=== PATIENT | female | born 1935 | race Caucasian/White ===

== ENCOUNTER 2017-11-27 08:01 | Inpatient (IN) | payer MEDICARE ==
[~2017-11-27 08:01] MED LIST: ALBUTEROL NEBULIZED 2.5 MG/3 ML INHALATION SCH
[2017-11-27] MEDS ORDERED: SODIUM CHLORIDE 0.9% 1,000 ML IV ONE (08:10)
[2017-11-27 08:42] LABS: Basophils % (A) 0 %; Eosinophils # (A) 0.2 k/uL (0-0.7); Eosinophils % (A) 3 %; HCT 38.8 % (34.0-46.0); HGB 12.7 gm/dL (11.4-16.0); Lymphocytes % (A) 19 %; MCHC 32.8 g/dL (31.0-37.0); MCV 85.5 fL (80.0-100.0); Mean Platelet Volume 7.3; Monocytes # (A) 0.2 k/uL (0-1.0); Monocytes % (A) 4 %; Neutrophils # (A) 3.8 k/uL (1.3-7.7); Neutrophils % (A) 72 %; Platelet Count 231 k/uL (150-450); RBC 4.54 m/uL (3.80-5.40); RDW 15.6 % (11.5-15.5); WBC 5.3 k/uL (3.8-10.6)
--- NOTE | 2017-11-27 08:49 | XR ---
EXAMINATION TYPE: XR chest 2V DATE OF EXAM: 11/27/2017 COMPARISON: NONE TECHNIQUE: PA and lateral views submitted. HISTORY: Shortness of breath FINDINGS: Hypertrophic and degenerative change of the spine. Left-sided consolidation. Right perihilar consolid ation. No pneumothorax. Arthropathy of the shoulders. IMPRESSION: 1. Left lower lobe consolidation correlate for pneumonia. Right perihilar consolidation noted which c ould been the basis of infiltrate, edema or mass. Correlate for interstitial pneumonitis or mild veno us congestion.
[2017-11-27 08:50] LABS: INR 1.1 (<1.2); Prothrombin Time 10.5 sec (9.0-12.0)
--- NOTE | 2017-11-27 08:54 | CT ---
EXAMINATION TYPE: CT brain wo con DATE OF EXAM: 11/27/2017 COMPARISON: NONE HISTORY: Altered mental status CT DLP: 1245 mGycm Automated exposure control for dose reduction was used. FINDINGS: Vascular calcifications are seen. Atherosclerotic change of the aorta. Hyperostosis of the calvarium. There is faint periventricular low attenuation which is nonspecific. No acute hemorrhage or mass effect. Nodular prominence of the right MCA. IMPRESSION: 1. No evidence of acute hemorrhage or mass effect 2. Faint nonspecific periventricular low attenuation most likely in the basis of remote microvascular ischemia. If there is concern for acute ischemia correlate with MRI as clinically warranted. 3. There is nodular prominence of the right MCA bifurcation suspicious for a small aneurysm.
[2017-11-27 09:01] LABS: ALT 21 U/L (9-52); AST 22 U/L (14-36); Albumin 3.8 g/dL (3.5-5.0); Alkaline Phosphatase 53 U/L (38-126); Anion Gap 13 mmol/L; Blood Urea Nitrogen 15 mg/dL (7-17); Calcium 8.8 mg/dL (8.4-10.2); Carbon Dioxide 26 mmol/L (22-30); Chloride 103 mmol/L (98-107); Glucose 113 mg/dL (74-99); Potassium 3.6 mmol/L (3.5-5.1); Sodium 142 mmol/L (137-145); Total Bilirubin 0.5 mg/dL (0.2-1.3); Total Protein 6.1 g/dL (6.3-8.2)
[2017-11-27 09:11] LABS: Appearance,Urine Clear (Clear); Bilirubin,Urine Negative (Negative); Blood,Urine Negative (Negative); Color,Urine Yellow; Glucose,Urine (UA) Negative (Negative); Ketones,Urine Negative (Negative); Leukocyte Esterase,Urine Negative (Negative); Mucus,Urine Rare /hpf; Nitrite,Urine Negative (Negative); Protein,Urine 1+ (Negative); RBC,Urine <1 /hpf (0-5); Specific Gravity,Urine 1.016 (1.001-1.035); Urobilinogen,Urine <2.0 mg/dL (<2.0); WBC,Urine 1 /hpf (0-5)
[2017-11-27 09:16] LABS: Creatine Kinase MB 0.4 ng/mL (0.0-2.4); Troponin I 0.015 ng/mL (0.000-0.034)
[2017-11-27 09:23] LABS: Amphetamine Screen,Urine Not Detected (NotDetected); Barbiturate Screen,Urine Not Detected (NotDetected); Benzodiazepines Screen,Urine Not Detected (NotDetected); Cocaine Screen,Urine Not Detected (NotDetected); Methadone Screen, Urine Not Detected (NotDetected); Opiate Screen,Urine Detected (NotDetected); Oxycodone Screen, Urine Not Detected (NotDetected); Phencyclidine Screen,Urine Not Detected (NotDetected); Tricyclic Antidepressant,Urine Not Detected (NotDetected); Urn Cannabinoid Scrn Not Detected (NotDetected)
[2017-11-27] MEDS ORDERED: HYDROcodone/APAP 10-325MG 1 EACH TAB PO ONE (11:24)
[2017-11-27] MEDS ORDERED: cefTRIAXone 2,000 MG in SODIUM CHLORIDE 0.9% 100 ML IVPB STA (12:22)
[2017-11-27] MEDS ORDERED: AZITHROMYCIN 500 MG TAB PO STA (12:23)
[2017-11-27] MEDS ORDERED: cefTRIAXone IN SWFI 2,000 MG/20 ML SYRINGE IVP STA (12:24)
[2017-11-27] MEDS ORDERED: ACETAMINOPHEN TAB 325 MG TAB PO PRN (12:32)
[2017-11-27] MEDS ORDERED: ONDANSETRON 4 MG/2 ML VIAL IVP PRN (12:32)
[2017-11-27] MEDS ORDERED: NALOXONE 0.4 MG/ML 1 ML VIAL IV PRN (12:32)
--- NOTE | 2017-11-27 12:32 | ED ---
Altered Mental Status HPI - General Chief Complaint: Altered Mental Status Stated Complaint: Altered Mental Time Seen by Provider: 11/27/17 08:09 Source: patient, EMS Mode of arrival: EMS Limitations: altered mental status - History of Present Illness Initial Comments: 82 years old female was unresponsive this morning, daughter is her caregiver they live in the same house daughter was talking on the mom before she was leaving for the work she noticed that mom wouldn't get up and finally she got up and she was quite confused whether she was combative by the time EMS was called and EMS arrived here she was with that by the time she got to the department of emergency medicine she was following the commands she was pleasant there were no complaints at that point he doesn't oxygen at home 24 hours today she does have a COPD she refused any headaches no neck stiffness no chest pain or shortness of breath no abdominal pain no frequency urgency dysuria - Related Data Home Medications Medication Instructions Recorded Confirmed Albuterol Nebulized [Ventolin 2.5 mg INHALATION DIRECTED 11/27/17 11/27/17 Nebulized] Allopurinol [Zyloprim] 300 mg PO DAILY 11/27/17 11/27/17 Aspirin EC [Ecotrin Low Dose] 81 mg PO DAILY 11/27/17 11/27/17 Carbidopa-Levodopa ER 50-200Mg 1 tab PO BID 11/27/17 11/27/17 [Sinemet ER 50-200] HYDROcodone/APAP 10-325MG [[place] 1 tab PO Q6H PRN 11/27/17 11/27/17 10-325] Levothyroxine Sodium [Synthroid] 112 mcg PO DAILY 11/27/17 11/27/17 Lisinopril [Zestril] 5 mg PO DAILY 11/27/17 11/27/17 Meclizine [Antivert] 25 mg PO DAILY 11/27/17 11/27/17 Meloxicam [Mobic] 7.5 mg PO DAILY 11/27/17 11/27/17 Multivitamins, Thera [Multivitamin 1 tab PO DAILY 11/27/17 11/27/17 (formulary)] Potassium Gluconate 550 1 tab PO DAILY 11/27/17 11/27/17 Pravastatin Sodium [Pravachol] 40 mg PO DAILY 11/27/17 11/27/17 Tiotropium Br/Olodaterol HCl 2 puff INHALATION RT-DAILY 11/27/17 11/27/17 [Stiolto Respimat Inhal Pool] Ubidecarenone [Co Q-10] 100 mg PO DAILY 11/27/17 11/27/17 metFORMIN HCL [Glucophage] 500 mg PO DAILY 11/27/17 11/27/17 Allergies Allergy/AdvReac Type Severity Reaction Status Date / Time codeine Allergy Unknown Verified 11/27/17 09:41 Review of Systems ROS Statement: Those systems with pertinent positive or pertinent negative responses have been documented in the HPI. ROS Other: All systems not noted in ROS Statement are negative. Past Medical History Past Medical History: COPD, Diabetes Mellitus, Vascular Disorder Additional Past Medical History / Comment(s): Parkinson's History of Any Multi-Drug Resistant Organisms: None Reported Past Surgical History: Cholecystectomy, Hysterectomy, Tonsillectomy Past Psychological History: No Psychological Hx Reported Smoking Status: Never smoker Past Alcohol Use History: None Reported Past Drug Use History: None Reported General Exam - General Exam Comments Initial Comments: General: The patient is awake and alert, in no distress, and does not appear acutely ill. GCS is 15 on arrival Skin: Skin is warm and dry and no rashes or lesions are noted. Eye: Pupils are equal, round and reactive to light, extra-ocular movements are intact; there is normal conjunctiva bilaterally. Ears, nose, mouth and throat: There are moist mucous membranes and no oral lesions. Neck: The neck is supple, there is no tenderness or JVD. Cardiovascular: There is a regular rate and rhythm. No murmur, rub or gallop is appreciated. Respiratory: To auscultation bilateral, noticed crackles at the bases bilateral Gastrointestinal: Soft, non-distended, non-tender abdomen without masses or organomegaly noted. There is no rebound or guarding present. Bowel sounds are unremarkable. Back: There is no tenderness to palpation in the midline. There is no obvious deformity. Musculoskeletal: Normal ROM, noticed dependent edema Neurological: CN II-XII intact, Cranial nerves III through XII are intact. There are no obvious motor or sensory deficits. Coordination appears grossly intact. Speech is normal. Psychiatric: Cooperative, appropriate mood & affect, normal judgment. Limitations: altered mental status Course Vital Signs 11/27/17 11/27/17 08:04 08:29 Temperature 97.0 F L Pulse Rate 87 82 Respiratory 16 18 Rate Blood Pressure 152/85 136/82 O2 Sat by Pulse 94 L 92 L Oximetry EKG is normal sinus ventricular rate is 86 DE interval is 148 QRS duration is 90 QT/QTc is 390/466 review of this EKG does not reveal any ST elevation or ST depression Head CT was reviewed there is a question of small aneurysm at the MCA, will need MRI as well as neurology consult she had dull changes in mental status x- ray confirms the pneumonia question of for congestive heart failure and even a mass on the x-ray she be admitted for the antibiotics and will consult neurology she be admitted to Dr. Marks service Medical Decision Making - Lab Data Result diagrams: 11/27/17 08:16 11/27/17 08:16 Lab Results 11/27/17 11/27/17 11/27/17 Range/Units 08:16 08:16 08:16 WBC 5.3 (3.8-10.6) k/uL RBC 4.54 (3.80-5.40) m/uL Hgb 12.7 (11.4-16.0) gm/dL Hct 38.8 (34.0-46.0) % MCV 85.5 (80.0-100.0) fL MCH 28.0 (25.0-35.0) pg MCHC 32.8 (31.0-37.0) g/dL RDW 15.6 H (11.5-15.5) % Plt Count 231 (150-450) k/uL Neutrophils % 72 % Lymphocytes % 19 % Monocytes % 4 % Eosinophils % 3 % Basophils % 0 % Neutrophils # 3.8 (1.3-7.7) k/uL Lymphocytes # 1.0 (1.0-4.8) k/uL Monocytes # 0.2 (0-1.0) k/uL Eosinophils # 0.2 (0-0.7) k/uL Basophils # 0.0 (0-0.2) k/uL PT (9.0-12.0) sec INR (<1.2) APTT (22.0-30.0) sec Sodium 142 (137-145) mmol/L Potassium 3.6 (3.5-5.1) mmol/L Chloride 103 (98-107) mmol/L Carbon Dioxide 26 (22-30) mmol/L Anion Gap 13 mmol/L BUN 15 (7-17) mg/dL Creatinine 0.61 (0.52-1.04) mg/dL Est GFR (CKD-EPI)AfAm >90 (>60 ml/min/1.73 sqM) Est GFR (CKD-EPI)NonAf 85 (>60 ml/min/1.73 sqM) Glucose 113 H (74-99) mg/dL Calcium 8.8 (8.4-10.2) mg/dL Total Bilirubin 0.5 (0.2-1.3) mg/dL AST 22 (14-36) U/L ALT 21 (9-52) U/L Alkaline Phosphatase 53 (38-126) U/L Ammonia (<30) umol/L Total Creatine Kinase 50 (30-135) U/L CK-MB (CK-2) 0.4 (0.0-2.4) ng/mL CK-MB (CK-2) Rel Index 0.8 Troponin I 0.015 (0.000-0.034) ng/mL Total Protein 6.1 L (6.3-8.2) g/dL Albumin 3.8 (3.5-5.0) g/dL Urine Color Urine Appearance (Clear) Urine pH (5.0-8.0) Ur Specific [place] (1.001-1.035) Urine Protein (Negative) Urine Glucose (UA) (Negative) Urine Ketones (Negative) Urine Blood (Negative) Urine Nitrite (Negative) Urine Bilirubin (Negative) Urine Urobilinogen (<2.0) mg/dL Ur Leukocyte Esterase (Negative) Urine RBC (0-5) /hpf Urine WBC (0-5) /hpf Urine Mucus (None) /hpf Urine Opiates Screen (NotDetected) Ur Oxycodone Screen (NotDetected) Urine Methadone Screen (NotDetected) Ur Propoxyphene Screen (NotDetected) Ur Barbiturates Screen (NotDetected) U Tricyclic Antidepress (NotDetected) Ur Phencyclidine Scrn (NotDetected) Ur Amphetamines Screen (NotDetected) U Methamphetamines Scrn (NotDetected) U Benzodiazepines Scrn (NotDetected) Urine Cocaine Screen (NotDetected) U Marijuana (THC) Screen (NotDetected) 11/27/17 11/27/1711/27/18 Range/Units 08:16 08:16 08:54 WBC (3.8-10.6) k/uL RBC (3.80-5.40) m/uL Hgb (11.4-16.0) gm/dL Hct (34.0-46.0) % MCV (80.0-100.0) fL MCH (25.0-35.0) pg MCHC (31.0-37.0) g/dL RDW (11.5-15.5) % Plt Count (150-450) k/uL Neutrophils % % Lymphocytes % % Monocytes % % Eosinophils % % Basophils % % Neutrophils # (1.3-7.7) k/uL Lymphocytes # (1.0-4.8) k/uL Monocytes # (0-1.0) k/uL Eosinophils # (0-0.7) k/uL Basophils # (0-0.2) k/uL PT 10.5 (9.0-12.0) sec INR 1.1 (<1.2) APTT 24.0 (22.0-30.0) sec Sodium (137-145) mmol/L Potassium (3.5-5.1) mmol/L Chloride (98-107) mmol/L Carbon Dioxide (22-30) mmol/L Anion Gap mmol/L BUN (7-17) mg/dL Creatinine (0.52-1.04) mg/dL Est GFR (CKD-EPI)AfAm (>60 ml/min/1.73 sqM) Est GFR (CKD-EPI)NonAf (>60 ml/min/1.73 sqM) Glucose (74-99) mg/dL Calcium (8.4-10.2) mg/dL Total Bilirubin (0.2-1.3) mg/dL AST (14-36) U/L ALT (9-52) U/L Alkaline Phosphatase (38-126) U/L Ammonia 14 (<30) umol/L Total Creatine Kinase (30-135) U/L CK-MB (CK-2) (0.0-2.4) ng/mL CK-MB (CK-2) Rel Index Troponin I (0.000-0.034) ng/mL Total Protein (6.3-8.2) g/dL Albumin (3.5-5.0) g/dL Urine Color Yellow Urine Appearance Clear (Clear) Urine pH 6.0 (5.0-8.0) Ur Specific [place] 1.016 (1.001-1.035) Urine Protein 1+ H (Negative) Urine Glucose (UA) Negative (Negative) Urine Ketones Negative (Negative) Urine Blood Negative (Negative) Urine Nitrite Negative (Negative) Urine Bilirubin Negative (Negative) Urine Urobilinogen <2.0 (<2.0) mg/dL Ur Leukocyte Esterase Negative (Negative) Urine RBC <1 (0-5) /hpf Urine WBC 1 (0-5) /hpf Urine Mucus Rare H (None) /hpf Urine Opiates Screen Detected H (NotDetected) Ur Oxycodone Screen Not Detected (NotDetected) Urine Methadone Screen Not Detected (NotDetected) Ur Propoxyphene Screen Not Detected (NotDetected) Ur Barbiturates Screen Not Detected (NotDetected) U Tricyclic Antidepress Not Detected (NotDetected) Ur Phencyclidine Scrn Not Detected (NotDetected) Ur Amphetamines Screen Not Detected (NotDetected) U Methamphetamines Scrn Not Detected (NotDetected) U Benzodiazepines Scrn Not Detected (NotDetected) Urine Cocaine Screen Not Detected (NotDetected) U Marijuana (THC) Screen Not Detected (NotDetected) Disposition Clinical Impression: Pneumonia, Change in mental status, Brain aneurysm, Lung mass Disposition: ADMITTED IP TO THIS [facility] Condition: Good Referrals: None,Stated [Primary Care Provider] - 1-2 days
[2017-11-27] MEDS ORDERED: PNEUMOCOCCAL VACC-PNEUMOVAX 23 25 MCG/0.5 ML VIAL IM ONE (15:23)
--- NOTE | 2017-11-27 16:43 | CT ---
EXAMINATION TYPE: CT angio head neck DATE OF EXAM: 11/27/2017 HISTORY: Altered mental status. COMPARISON: NONE CT DLP: 401.2 mGycm. Automated Exposure Control for Dose Reduction was Utilized. TECHNIQUE: CTA scan of the head and neck are performed with IV Contrast, patient injected with 65ml mL of Isovue 370, axial images are obtained, coronal and sagittal reformatted images are reviewed. Th ree-D reconstructed images are created on an independent workstation and reviewed. FINDINGS: Carotid/Vascular Structures: There is normal three-vessel origin from aortic arch. There is mild héctor pheral plaque in the aortic arch. There is moderate calcified plaque after origin of right common car otid artery in the right subclavian artery. Right vertebral artery originates from the proximal right brachiocephalic artery after common carotid origination. Subclavian arteries bilaterally show no sig nificant plaque or stenosis otherwise. Right common carotid artery shows slight tortuous course witho ut significant plaque or stenosis. There is minimal calcified plaque extending into proximal right in ternal carotid artery at carotid bulb. There is slightly tortuous course to right internal carotid ar kevin without significant plaque or stenosis. Mild calcified plaque supraclinoid segment is present. Left common carotid artery shows no significant plaque or stenosis. There is mild calcified plaque in carotid bulb extending into proximal internal carotid artery without significant plaque or stenosis. There is tortuous course to the left internal carotid artery. There is mild calcified plaque supracl inoid segment. There is no significant stenosis in the left internal carotid artery. Bilateral external carotid arteries are patent without significant plaque or stenosis. There is codominant vertebral basilar system with mild calcified plaque in distal vertebral arteries. There is no significant focal stenosis or aneurysmal change. There are patent bilateral small calibe r posterior communicating arteries. There is somewhat small caliber hypoplastic left P1 segment with bladder filling of P2 segment due to patent left-sided posterior communicating artery. Images of the anterior circulation show patent anterior communicating artery without significant sten osis or aneurysmal change. Other: Hyperostosis frontalis is present. There is loss of normal cervical curvature with prominent spurring and disc space narrowing C4-C5 and C6-C7 levels. IMPRESSION: 1. No significant focal stenosis in common or internal carotid arteries bilaterally. 2. No aneurysmal change at the level of the enterprise of [place].
--- NOTE | 2017-11-27 17:12 | P.CNNES ---
History of Present Illness Consult date: 11/27/17 Reason for Consult: Patient with altered mental status and possible right MCA aneurysm. History of Present Illness: This patient is a 82-year-old right-handed white female who was in her usual state of health early this morning. According to the daughter who provided the medical history she went into her room to awaken her as she normally does before she leaves for work. Apparently this morning the patient was unarousable. She tried shaking her to get her to awaken but she remained very lethargic. The daughter was very concerned and immediately called for EMS. When EMS arrived the patient still was very lethargic but came around and was very combative. She apparently was having difficulty with her nasal oxygen according to the daughter she was not breathing well just prior to this event. Apparently she uses nasal oxygen and usually it is very easy for her to continue normal breathing but she did appear to be some slightly ashen in color according to the daughter as the oxygen was not flowing well for her at all. She does have a history of underlying COPD. When the EMS arrived the patient was very combative. She required some restraints and was brought into the emergency room today for further evaluation. She was seen in the ER at the [facility] this morning for further assessment. She was seen in the ER by Dr. Banegas. He ordered a computed tomography scan of the brain for the patient for further evaluation of altered mental status. CAT scan results indicated no evidence of acute hemorrhage or mass effect. There was a nodular appearance in prominence to the right MCA bifurcation suggesting possibility of a small aneurysm. For this reason the patient was recommended to undergo CTA angiogram of the head and neck. She was admitted to hospital for further evaluation. According to the daughter she follows with the neurology clinic in [place]. She recently was seen there and was diagnosed with vascular dementia. According to the daughter for the last 3-4 days she has been using a Exelon patch. The patient also had a recent MRI which according to the daughter did not reveal any major abnormalities. She is following with her neurologist in [place]. The patient is now resting comfortably in bed. She is much more awake and alert and is answering all questions appropriately. Daughter also notices a significant improvement with her mental status since admission to the hospital. The patient is now admitted and neurology has been consulted for further evaluation and recommendations. Review of Systems Constitutional: Denies chills, Denies fever Eyes: denies blurred vision, denies pain Ears, nose, mouth and throat: Denies headache, Denies sore throat Cardiovascular: Denies chest pain, Denies shortness of breath Respiratory: Denies cough Gastrointestinal: Denies abdominal pain, Denies diarrhea, Denies nausea, Denies vomiting Genitourinary: Denies dysuria, Denies hematuria Musculoskeletal: Denies myalgias Integumentary: Denies pruritus, Denies rash Neurological: Reports change in mentation, Reports confusion, Reports memory loss, Reports syncope, Denies numbness, Denies weakness Psychiatric: Reports disorientation, Denies anxiety, Denies depression Endocrine: Denies fatigue, Denies weight change Past Medical History Past Medical History: COPD, Dementia, Diabetes Mellitus, Hyperlipidemia, Hypertension, Memory Impairment, Pneumonia, Thyroid Disorder, Vascular Disorder Additional Past Medical History / Comment(s): Parkinson's, IDDM type II, neuropathy bilateral hands/feet, home O2 at 2L/NC ATC, 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 History of Any Multi-Drug Resistant Organisms: None Reported Past Surgical History: Cholecystectomy, Hysterectomy, Tonsillectomy Additional Past Surgical History / Comment(s): Bilateral cataract removals and lenses were lazered Past Anesthesia/Blood Transfusion Reactions: No Reported Reaction Smoking Status: Never smoker - Past Family History Father Family Medical History: Myocardial Infarction ([place]) Additional Family Medical History / Comment(s): Father of a [place] at the age of 64yrs. Mother Family Medical History: Congestive Heart Failure (CHF) Additional Family Medical History / Comment(s): Mother of CHF at the age of 72 yrs. Medications and Allergies Home Medications Medication Instructions Recorded Confirmed Type Albuterol Nebulized [Ventolin 2.5 mg INHALATION DIRECTED 11/27/17 11/27/17 History Nebulized] Allopurinol [Zyloprim] 300 mg PO DAILY 11/27/17 11/27/17 History Aspirin EC [Ecotrin Low Dose] 81 mg PO DAILY 11/27/17 11/27/17 History Carbidopa-Levodopa ER 50-200Mg 1 tab PO BID 11/27/17 11/27/17 History [Sinemet ER 50-200] HYDROcodone/APAP 10-325MG [Ancram 1 tab PO Q6H PRN 11/27/17 11/27/17 History 10-325] Levothyroxine Sodium [Synthroid] 112 mcg PO DAILY 11/27/17 11/27/17 History Lisinopril [Zestril] 5 mg PO DAILY 11/27/17 11/27/17 History Meclizine [Antivert] 25 mg PO DAILY 11/27/17 11/27/17 History Meloxicam [Mobic] 7.5 mg PO DAILY 11/27/17 11/27/17 History Multivitamins, Thera [Multivitamin 1 tab PO DAILY 11/27/17 11/27/17 History (formulary)] Potassium Gluconate 550 1 tab PO DAILY 11/27/17 11/27/17 History Pravastatin Sodium [Pravachol] 40 mg PO DAILY 11/27/17 11/27/17 History Rivastigmine 4.6MG/24Hr Patch 1 patch TRANSDERM Q24HR 11/27/17 11/27/17 History [Exelon 4.6MG/24Hr Patch] Tiotropium Br/Olodaterol HCl 2 puff INHALATION RT-DAILY 11/27/17 11/27/17 History [Stiolto Respimat Inhal [place]] Ubidecarenone [Co Q-10] 100 mg PO DAILY 11/27/17 11/27/17 History metFORMIN HCL [Glucophage] 500 mg PO DAILY 11/27/17 11/27/17 History Allergies Allergy/AdvReac Type Severity Reaction Status Date / Time codeine Allergy Unknown Verified 11/27/17 09:41 Physical Examination - Vital Signs Vital Signs: Vital Signs Temp Pulse Resp BP Pulse Ox 11/27/17 14:51 98.2 F 97 18 109/64 98 11/27/17 13:07 82 18 144/85 94 L 11/27/17 12:00 76 18 150/86 98 11/27/17 11:00 78 18 178/87 98 11/27/17 08:29 82 18 136/82 92 L 11/27/17 08:04 97.0 F L 87 16 152/85 94 L Intake and Output 11/27/17 11/27/17 11/27/17 06:59 14:59 22:59 Other: Weight 104.326 kg - Constitutional General appearance: average body habitus, cooperative - EENT EENT: PERRL, mucous membranes moist - Respiratory Respiratory: lungs clear, normal breath sounds - Cardiovascular Cardiovascular: regular rate, normal S1, normal S2 Extremities: no peripheral edema bilaterally - Gastrointestinal Gastrointestinal: normoactive bowel sounds - Integumentary Integumentary: normal - Neurologic Cranial nerve examination: PERRL, EOMI, VFF, V1/V2/V3 grossly intact, face symmetric, tongue midline, intact corneal reflex, normal palatal elevation Speech examination: intact Sensorimotor examination: intact Motor examination - right side: 4/5: biceps, triceps, wrist flexion, wrist extension, used car manager, hip flexors, knee extensors, dorsiflexion, toe extension (EHL) , plantarflexion Motor examination - left side: 4/5: biceps, triceps, wrist flexion, wrist extension, used car manager, hip flexors, knee extensors, dorsiflexion, toe extension (EHL) , plantarflexion Detailed sensory examination: intact Reflex and gait examination: intact Reflexes: 1+: ankle, bicep, knee, tricep - Musculoskeletal Musculoskeletal: no pain - Psychiatric Psychiatric: mood/affect appropriate, cooperative Results - Laboratory Findings CBC and BMP: 11/27/17 08:16 11/27/17 08:16 Abnormal Lab Findings: Abnormal Labs 11/27/17 11/27/17 11/27/17 08:16 08:16 08:54 RDW 15.6 H Glucose 113 H Total Protein 6.1 L Urine Protein 1+ H Urine Mucus Rare H Urine Opiates Screen Detected H Assessment and Plan (1) Acute metabolic encephalopathy Current Visit: Yes Status: Acute Code(s): G93.41 - METABOLIC ENCEPHALOPATHY SNOMED Code(s): 63444864 (2) Vascular dementia Current Visit: Yes Status: Acute Code(s): F01.50 - VASCULAR DEMENTIA WITHOUT BEHAVIORAL DISTURBANCE SNOMED Code(s): 954700843 (3) Aneurysm Current Visit: Yes Status: Acute Code(s): I72.9 - ANEURYSM OF UNSPECIFIED SITE SNOMED Code(s): 739112495 (4) Parkinsons disease Current Visit: Yes Status: Acute Code(s): G20 - PARKINSON'S DISEASE SNOMED Code(s): 98061848 Plan: This patient is a 82-year-old female who was admitted to the hospital today after being found unresponsive and lethargic at home. According to the daughter who provided the medical history she went to awaken her this morning in which she was unresponsive. She tried shaking her and there was still no response. EMS was called and when EMS arrived the patient became severely agitated and combative. Apparently she was not getting oxygen throughout the night is her nasal oxygen tank was not working properly. Her pulse oximetry in the ER however is. To be within normal limits. Patient does have a history of underlying vascular dementia and was being evaluated in the ER today by Dr. Banegas. She was sent for a computed tomography scan of the brain which revealed evidence of possible aneurysm due to nodular prominence of the right MCA bifurcation. She was admitted to hospital for further evaluation. Patient underwent a CT angiogram of the head and neck which came back negative for any evidence of aneurysm or significant stenosis. Patient is now resting comfortably in bed and appears to be near baseline level of function according to the daughter who is her primary caregiver. Patient was recently started on Exelon patch for treatment of underlying vascular dementia. She follows with her neurologist in [place]. She seems to be near baseline level of function. Now that her CTA angiogram of the head and neck came back negative she may be considered for possible discharge home soon. We have discussed all of these findings in detail today with the patient and her daughter and all of their questions were answered. We will continue close neurological follow-up for the patient during this admission. Time with Patient: Greater than 30
[2017-11-27 17:27] LABS: Glucose,Whole Blood 98 mg/dL (75-99)
[2017-11-27] MEDS ORDERED: ALPRAZolam 0.25 MG TAB PO PRN (17:30)
[2017-11-27] MEDS ORDERED: IPRATROPIUM-ALBUTEROL 3 ML NEB INHALATION PRN (17:30)
[2017-11-27] MEDS: INSULIN ASPART 100 UNIT/ML 1 ML 10 ML VIAL SQ SCH ×2 (17:37→21:27)
--- NOTE | 2017-11-27 18:29 | HP ---
HISTORY AND PHYSICAL CHIEF COMPLAINT: Change in mental status. HISTORY OF PRESENT ILLNESS: This 82-year-old woman with a past medical history of multiple medical problems, including history of COPD, dementia, diabetes mellitus, hypertension, hyperlipidemia, DJD, history of Parkinson's, being followed by Dr. Oquendo in the outpatient setting, apparently was found to be unresponsive and cyanotic. The oxygen was possibly not working and the patient was taken to [facility] and admitted for further evaluation and treatment. The patient was confused. Currently after oxygen the patient improved significantly. A similar episode also happened in May while the patient was sitting at the dining table, according to the family. The patient is followed by Pulmonary and Cardiology elsewhere. There is no history of any chest pain, palpitations, headache, loss of consciousness, seizures at this time. The patient is also complaining of minimal left-sided chest pain. PAST MEDICAL HISTORY: 1. COPD. 2. Dementia. 3. Diabetes mellitus. 4. Hypertension. 5. Hyperlipidemia. 6. Parkinson's. 7. Memory impairment. 8. Cholecystectomy. HOME MEDICATIONS: 1. Exelon patch 1 q.24 hours. 2. Glucophage 500 mg p.o. b.i.d. 3. Coenzyme-Q 100 mg p.o. daily. 4. Stiolto 2 puffs daily. 5. Pravachol 40 mg p.o. daily. 6. Potassium gluconate 1 tablet p.o. daily. 7. Multivitamins 1 p.o. daily. 8. Mobic 7.5 p.o. daily. 9. Antivert 25 mg p.o. daily. 10.Zestril 5 mg p.o. daily. 11.Synthroid 112 mcg p.o. daily. 12.[place] 10 mg q.6 p.r.n. 13.Carbidopa levodopa (Sinemet ER) 50/200 one p.o. b.i.d. 14.Ecotrin 81 mg p.o. daily. 15.Zyloprim 300 mg p.o. daily. 16.Ventolin 2.5 p.r.n. ALLERGIES: CODEINE. FAMILY HISTORY: History of myocardial infarction in the family. SOCIAL HISTORY: No history of smoking. No history of alcohol. REVIEW OF SYSTEMS: ENT: Diminished hearing. Diminished vision. CARDIOVASCULAR SYSTEM: As mentioned earlier. RESPIRATORY SYSTEM: As mentioned earlier. GI: No nausea, vomiting. : No dysuria or retention. NERVOUS SYSTEM: As mentioned earlier. ALLERGY/IMMUNOLOGY: No asthma, hayfever. MUSCULOSKELETAL: As mentioned earlier. HEMATOLOGY/ONCOLOGY: No history of anemia. ENDOCRINE: As mentioned earlier. CONSTITUTIONAL: As mentioned earlier. DERMATOLOGY: Negative. RHEUMATOLOGY: Negative. PSYCHIATRY: As mentioned earlier. PHYSICAL EXAMINATION: Patient alert and oriented x1. Pulse 78, blood pressure 122/70, respiration 20, temperature 97.7, pulse ox 92% on 3 L. HEENT: Conjunctivae normal. Oral mucosa moist. NECK: No jugular venous distention. No carotid bruit. No lymph node enlargement. CARDIOVASCULAR SYSTEM: S1, S2 muffled. RESPIRATORY SYSTEM: Breath sounds diminished at the bases. A few scattered rhonchi. No crackles. ABDOMEN: Soft, nontender. No mass palpable. LEGS: No edema. No swelling. NERVOUS SYSTEM: Higher functions as mentioned earlier. Moves all 4 limbs. No focal motor or sensory deficit. LYMPHATICS: No lymph node palpable in neck, axillae or groin. SKIN: No ulcer, rash, bleeding. LABS: CBC within normal limits. BMP noted. The chest x-ray was showing possible left lower lobe consolidation, possible pneumonia, right perihilar consolidation. The CT scan of the brain showed nonspecific periventricular attenuation aneurysm was suspected; however, CT angiogram of the brain showed no evidence of any focal stenosis or aneurysmal changes. ASSESSMENT: 1. Chronic obstructive pulmonary disease, acute exacerbation, with acute hypoxic respiratory failure with possible bilateral pneumonia, left more than the right, possibly Gram-negative. 2. Dementia. 3. Diabetes mellitus, type 2. 4. Hyperlipidemia. 5. Hypertension. 6. Memory impairment. 7. Hypothyroidism. 8. Parkinson's. 9. Chronic hypoxic respiratory failure, on 2 L home oxygen. 10.History of gout. 11.History of degenerative joint disease. 12.Cholecystectomy. 13.Hysterectomy. 14.History of bilateral cataracts. 15.FULL CODE. RECOMMENDATIONS AND DISCUSSION: In this 82-year-old woman who presented with multiple complex medical issues, we will monitor the patient closely, continue the current medications, continue symptomatic treatment. Will initiate broad-spectrum IV antibiotics. Optimize bronchodilators. I will also obtain a pulmonary consultation. Guarded prognosis because of multiple complex medical issues. I will repeat the chest x-ray tomorrow. Further recommendations to follow. Discussed with the patient and family. MMODL / IJN: [id number] / CARIDAD
[2017-11-27] MEDS: RIVASTIGMINE 4.6MG/24HR PATCH TRANSDERM SCH (18:46)
[2017-11-27] MEDS: IPRATROPIUM-ALBUTEROL 3 ML NEB INHALATION SCH (20:03)
[2017-11-27 20:43] LABS: Glucose,Whole Blood 120 mg/dL (75-99)
[2017-11-27] MEDS: HYDROcodone/APAP 10-325MG 1 EACH TAB PO PRN (21:26)
[2017-11-27] MEDS: MELATONIN 3 MG TABLET PO SCH (21:27)
[2017-11-27] MEDS: HEPARIN SODIUM,PORCINE 5,000 UNIT/ML 1 ML VIAL SQ SCH (21:27)
[2017-11-27] MEDS: CARBIDOPA-LEVODOPA ER 50-200MG 1 EACH TABLET.ER PO SCH (21:27)
[2017-11-28] MEDS: LEVOTHYROXINE 112 MCG TAB PO SCH (06:22)
[2017-11-28 07:19] LABS: Glucose,Whole Blood 91 mg/dL (75-99)
--- NOTE | 2017-11-28 07:50 | XR ---
EXAMINATION TYPE: XR chest 1V portable DATE OF EXAM: 11/28/2017 Comparison: 11/27/2017 Clinical History: 82-year-old female pneumonia Findings: Heart normal size. There is cardiac arch calcifications. Mild interstitial prominence unchanged. There is improving aera tion both at the left base and also at the right perihilar region. Impression: Improving aeration at both the left base and the right perihilar region.
[2017-11-28] MEDS: RIVASTIGMINE 4.6MG/24HR PATCH TRANSDERM SCH (08:01)
[2017-11-28] MEDS: LISINOPRIL 5 MG TAB PO SCH (08:01)
[2017-11-28] MEDS: PANTOPRAZOLE 40 MG TABLET PO SCH (08:01)
[2017-11-28] MEDS: CARBIDOPA-LEVODOPA ER 50-200MG 1 EACH TABLET.ER PO SCH ×2 (08:01→21:37)
[2017-11-28] MEDS: ASPIRIN 81 MG PO SCH (08:02)
[2017-11-28] MEDS: MELOXICAM 7.5 MG TAB PO SCH (08:02)
[2017-11-28] MEDS: PRAVASTATIN SODIUM 40 MG TAB PO SCH (08:02)
[2017-11-28] MEDS: MECLIZINE 25 MG TAB PO SCH (08:02)
[2017-11-28] MEDS: ALLOPURINOL 300 MG TAB PO SCH (08:02)
[2017-11-28] MEDS: MULTIVITAMINS, THERA 1 EACH TAB PO SCH (08:02)
[2017-11-28] MEDS: HEPARIN SODIUM,PORCINE 5,000 UNIT/ML 1 ML VIAL SQ SCH ×2 (08:03→21:37)
[2017-11-28] MEDS: metFORMIN 500 MG TAB PO SCH (08:03)
[2017-11-28] MEDS: cefTRIAXone IN SWFI 1,000 MG/10 ML SYRINGE IVP SCH (08:03)
[2017-11-28] MEDS: INSULIN ASPART 100 UNIT/ML 1 ML 10 ML VIAL SQ SCH ×4 (08:04→21:42)
[2017-11-28 08:14] LABS: Basophils % (A) 0 %; Eosinophils # (A) 0.1 k/uL (0-0.7); Eosinophils % (A) 1 %; HGB 11.7 gm/dL (11.4-16.0); Lymphocytes % (A) 17 %; MCH 26.6 pg (25.0-35.0); MCHC 31.6 g/dL (31.0-37.0); MCV 84.3 fL (80.0-100.0); Monocytes # (A) 0.3 k/uL (0-1.0); Monocytes % (A) 4 %; Neutrophils # (A) 4.7 k/uL (1.3-7.7); Neutrophils % (A) 76 %; Platelet Count 240 k/uL (150-450); RBC 4.38 m/uL (3.80-5.40); RDW 15.2 % (11.5-15.5); WBC 6.2 k/uL (3.8-10.6)
[2017-11-28] MEDS: STIOLTO INHALATION SCH (08:14)
[2017-11-28] MEDS: CO Q-10 100MG PO SCH (08:14)
[2017-11-28] MEDS: POTASSIUM GLUCONATE 550 MG PO SCH (08:14)
[2017-11-28 08:28] LABS: Anion Gap 8 mmol/L; Blood Urea Nitrogen 14 mg/dL (7-17); Calcium 8.7 mg/dL (8.4-10.2); Carbon Dioxide 31 mmol/L (22-30); Chloride 104 mmol/L (98-107); Glucose 90 mg/dL (74-99); Potassium 3.6 mmol/L (3.5-5.1); Sodium 143 mmol/L (137-145)
[2017-11-28] MEDS: IPRATROPIUM-ALBUTEROL 3 ML NEB INHALATION SCH ×3 (08:47→19:35)
--- NOTE | 2017-11-28 09:09 | PCN ---
PROCEDURE NOTE This is an 82-year-old female. Patient has been admitted with a hip fracture. The patient needs blood to be cross matched for transfusion. The patient has a difficult access to draw the blood. I was consulted for obtaining blood for the crossmatch. DESCRIPTION OF PROCEDURE: Left groin was prepped and draped and 1% lidocaine was infiltrated. Micropuncture kit introduced to the left femoral vein and 10 mL of blood was drawn and needle was removed. Pressure was held. The patient tolerated the procedure well. Blood was sent for crossmatch of blood. The patient tolerated the procedure well. MMODL / IJN: [id number] /
[2017-11-28 11:36] LABS: Glucose,Whole Blood 117 mg/dL (75-99)
--- NOTE | 2017-11-28 12:33 | P.CNPUL ---
History of Present Illness Consult date: 11/28/17 Requesting physician: Whitney Marks Reason for consult: abnormal CXR/CT Chief complaint: Altered mental status History of present illness: This is a 82-year-old female patient with a known history of Parkinson's, dementia, diabetes mellitus, hypothyroidism, hyperlipidemia, hypertension. She is a lifelong nonsmoker. She was brought here to the emergency room yesterday after her daughter found her unresponsive in her bed at home. She did wake up eventually was quite confused and combative. By the time she did get to the emergency room however she was quite pleasant and cooperative. Computed tomography scan of the brain revealed no evidence of acute hemorrhage or mass effect. CT angiogram of the head and neck revealed no significant focal stenosis in the common or internal carotid arteries bilaterally. There is no aneurysmal change at the level of the [place]. Chest x-ray did show some loss of lung volume in the left base in the right perihilar region which is improved today as compared to yesterday. Preliminary urine culture reveals no growth. She has been initiated on ceftriaxone and azithromycin. She is seen today in consultation on the regular medical floor. She is currently awake and alert. She is confused to time and place. Currently maintaining good O2 saturations in the 90s on 2 L/m per nasal cannula. He is afebrile. No leukocytosis. 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 History of Any Multi-Drug Resistant Organisms: None Reported Past Surgical History: Cholecystectomy, Hysterectomy, Tonsillectomy Additional Past Surgical History / Comment(s): Bilateral cataract removals and lenses were lazered Past Anesthesia/Blood Transfusion Reactions: No Reported Reaction Smoking Status: Never smoker - Past Family History Father Family Medical History: Myocardial Infarction ([place]) Additional Family Medical History / Comment(s): Father of a [place] at the age of 64yrs. Mother Family Medical History: Congestive Heart Failure (CHF) Additional Family Medical History / Comment(s): Mother of CHF at the age of 72 yrs. Medications and Allergies Home Medications Medication Instructions Recorded Confirmed Type Albuterol Nebulized [Ventolin 2.5 mg INHALATION DIRECTED 11/27/17 11/27/17 History Nebulized] Allopurinol [Zyloprim] 300 mg PO DAILY 11/27/17 11/27/17 History Aspirin EC [Ecotrin Low Dose] 81 mg PO DAILY 11/27/17 11/27/17 History Carbidopa-Levodopa ER 50-200Mg 1 tab PO BID 11/27/17 11/27/17 History [Sinemet ER 50-200] HYDROcodone/APAP 10-325MG [[place] 1 tab PO Q6H PRN 11/27/17 11/27/17 History 10-325] Levothyroxine Sodium [Synthroid] 112 mcg PO DAILY 11/27/17 11/27/17 History Lisinopril [Zestril] 5 mg PO DAILY 11/27/17 11/27/17 History Meclizine [Antivert] 25 mg PO DAILY 11/27/17 11/27/17 History Meloxicam [Mobic] 7.5 mg PO DAILY 11/27/17 11/27/17 History Multivitamins, Thera [Multivitamin 1 tab PO DAILY 11/27/17 11/27/17 History (formulary)] Potassium Gluconate 550 1 tab PO DAILY 11/27/17 11/27/17 History Pravastatin Sodium [Pravachol] 40 mg PO DAILY 11/27/17 11/27/17 History Rivastigmine 4.6MG/24Hr Patch 1 patch TRANSDERM Q24HR 11/27/17 11/27/17 History [Exelon 4.6MG/24Hr Patch] Tiotropium Br/Olodaterol HCl 2 puff INHALATION RT-DAILY 11/27/17 11/27/17 History [Stiolto Respimat Inhal [place]] Ubidecarenone [Co Q-10] 100 mg PO DAILY 11/27/17 11/27/17 History metFORMIN HCL [Glucophage] 500 mg PO DAILY 11/27/17 11/27/17 History Allergies Allergy/AdvReac Type Severity Reaction Status Date / Time codeine Allergy Unknown Verified 11/27/17 09:41 Physical Exam Vitals: Vital Signs Temp Pulse Pulse Resp BP BP BP 11/28/17 08:58 70 11/28/17 08:48 70 16 11/28/17 08:00 16 11/28/17 07:20 97.8 F 68 16 153/78 11/27/17 22:35 97.4 F L 86 20 128/61 11/27/17 20:14 68 16 11/27/17 20:04 71 16 11/27/17 15:00 97.7 F 78 20 122/70 11/27/17 14:51 98.2 F 97 18 109/64 11/27/17 13:07 82 18 144/85 Pulse Ox 11/28/17 08:58 11/28/17 08:48 11/28/17 08:00 11/28/17 07:20 91 L 11/27/17 22:35 91 L 11/27/17 20:14 11/27/17 20:04 11/27/17 15:00 92 L 11/27/17 14:51 98 11/27/17 13:07 94 L Intake and Output 11/27/17 11/28/17 11/28/17 22:59 06:59 14:59 Output Total 300 Balance -300 Output: Urine 300 Other: Voiding Method Bedside Commode # Voids 1 1 3 - Constitutional General appearance: average body habitus - EENT Eyes: EOMI, PERRLA ENT: hard of hearing Ears: bilateral: normal - Neck Neck: normal ROM Carotids: bilateral: upstroke normal Thyroid: bilateral: normal size - Respiratory Respiratory: left: rhonchi - Cardiovascular Rhythm: regular Heart sounds: normal: S1, S2 - Gastrointestinal General gastrointestinal: normal bowel sounds - Integumentary Integumentary: normal turgor - Neurologic Neurologic: focal deficits - Musculoskeletal Musculoskeletal: generalized weakness - Psychiatric Is oriented to person. Disoriented to time and place. Results - Laboratory Findings CBC and BMP: 11/28/17 07:55 11/28/17 07:55 PT/INR, D-dimer PT 10.5 sec (9.0-12.0) 11/27/17 08:16 INR 1.1 (<1.2) 11/27/17 08:16 Abnormal lab findings: Abnormal Labs 11/27/17 11/27/17 11/27/17 08:16 08:16 08:54 RDW 15.6 H Carbon Dioxide Glucose 113 H POC Glucose (mg/dL) Total Protein 6.1 L Urine Protein 1+ H Urine Mucus Rare H Urine Opiates Screen Detected H 11/27/17 11/28/17 11/28/17 20:42 07:55 11:34 RDW Carbon Dioxide 31 H Glucose POC Glucose (mg/dL) 120 H 117 H Total Protein Urine Protein Urine Mucus Urine Opiates Screen - Diagnostic Findings Chest x-ray: image reviewed Assessment and Plan Assessment: Impression: #1 Altered mental status suspect secondary to a left lower lobe pneumonia. #2 Acute hypoxic respiratory failure secondary to above. #3 Parkinson's disease. #4 Dementia. #5 Hypothyroidism. #6 Hyperlipidemia. #7 Hypertension. #8 Diabetes mellitus. Plan: The patient was seen and evaluated by Dr. Drake. Chest x-ray and labs were reviewed. We'll continue with her current medications for now including DuoNeb inhalations 3 times a day when necessary Stiolto and antibiotics in the form of azithromycin and ceftriaxone. She is on heparin for DVT prophylaxis. Protonix for GI prophylaxis. Switch to oral antibiotics tomorrow, probable discharge in the a.m. We will continue to follow and make further recommendations based on her clinical status. The plan was discussed in detail with the patient's daughter who is at the bedside and is agreeable. I, the cosigning physician, performed a history & physical examination of the patient. Lungs sounds with few scattered rhonchi more so on the left lung base. Maintaining good O2 saturations in the 90s on 2 L/m per nasal cannula. I discussed the assessment and plan of care with my nurse practitioner, Maria Elena Marin. I attest to the above note as dictated by her. Time with Patient: Greater than 30
[2017-11-28] MEDS: AZITHROMYCIN 500 MG in DEXTROSE 5% IN WATER 250 ML IVPB SCH ×2 (12:57)
[2017-11-28 13:01] LABS: Hemoglobin A1C 5.4 % (4.0-6.0)
[2017-11-28] MEDS: HYDROcodone/APAP 10-325MG 1 EACH TAB PO PRN ×2 (13:07→21:38)
--- NOTE | 2017-11-28 15:23 | P.PN ---
Subjective Progress Note Date: 11/28/17 This patient is a 82-year-old female who was admitted to the [facility] yesterday for evaluation of altered mental status and worsening dementia. She has a history of underlying dementia and Parkinson's disease. She was very unresponsive at home yesterday morning and this was a reason for admission. She is now back to near baseline level of function. She underwent a computed tomography scan of the brain which revealed no evidence of acute hemorrhage or mass effect. CTA angiogram of the head and neck reveal no significant focal stenosis in the common or internal carotid arteries bilaterally. There was no aneurysmal change at the level of the [place]. Patient is being treated for left lower lobe pneumonia. She is currently on IV antibiotics including azithromycin and ceftriaxone. She'll be switched to oral antibiotics tomorrow. The patient otherwise seems to be resting comfortably. As noted she does have underlying dementia which remains stable. We will continue close neurological follow-up for the patient. As noted there was concern for possibility of right MCA aneurysm on CAT scan of the brain however this was not appreciated on the CTA angiogram of the head and neck. Patient's daughter sitting at bedside and states there is been some slight improvement but at times she still becomes confused. She does have some degree of hypoxic encephalopathy which is being treated by pulmonary medicine for her left lower lobe pneumonia. Hopefully she will continue to show improvement. We will continue close neurological follow-up with the patient during this admission. Objective - Vital Signs Vital signs: Vital Signs Temp 97.8 F 11/28/17 07:20 Pulse 68 11/28/17 14:05 Resp 16 11/28/17 13:52 BP 153/78 11/28/17 07:20 Pulse Ox 91 L 11/28/17 07:20 Intake & Output 11/27/17 11/28/17 11/28/17 18:59 06:59 18:59 Output Total 300 Balance -300 Weight 104.326 kg Output: Urine 300 Other: Voiding Method Bedside Commode # Voids 1 3 - Exam Physical examination: PHYSICAL EXAMINATION: Patient is resting comfortably in bed. VITAL SIGNS: Blood pressure is [153/78]. Heart rate is [68]. Respiration is [16] . Temperature is [97.8]. HEENT: Head is atraumatic, neck is supple, there were no carotid bruits. CHEST: Lungs are clear to auscultation and percussion. CARDIAC: S1, S2 normal rate and rhythm. There is no murmur. ABDOMEN: Soft and nontender. Bowel sounds are present. EXTREMITIES: There is no pedal edema. Peripheral pulses are present. Neurological examination: Patient's neurological examination is unchanged from yesterday. - Labs CBC & Chem 7: 11/28/17 07:55 11/28/17 07:55 Labs: Abnormal Lab Results - Last 24 Hours (Table) 11/27/17 11/28/17 11/28/17 Range/Units 20:42 07:55 11:34 Carbon Dioxide 31 H (22-30) mmol/L POC Glucose (mg/dL) 120 H 117 H (75-99) mg/dL Microbiology - Last 24 Hours (Table) 11/27/17 08:54 Urine Culture - Preliminary Urine,Catheterized Assessment and Plan (1) Acute metabolic encephalopathy Current Visit: Yes Status: Acute Code(s): G93.41 - METABOLIC ENCEPHALOPATHY SNOMED Code(s): 44450441 (2) Vascular dementia Current Visit: Yes Status: Acute Code(s): F01.50 - VASCULAR DEMENTIA WITHOUT BEHAVIORAL DISTURBANCE SNOMED Code(s): 162292765 (3) Aneurysm Current Visit: Yes Status: Acute Code(s): I72.9 - ANEURYSM OF UNSPECIFIED SITE SNOMED Code(s): 355199812 (4) Parkinsons disease Current Visit: Yes Status: Acute Code(s): G20 - PARKINSON'S DISEASE SNOMED Code(s): 75160092 Plan: This patient is a 82-year-old female who was admitted to hospital with episode of unresponsiveness and obtundation. She is doing much better today. She was initially evaluated with a computed tomography scan of the brain which reveals suspicion for right MCA aneurysm. She underwent a CTA angiogram of the head and neck which came back negative for any evidence of aneurysm. She has been making good progress since admission to hospital. She is being treated for a left lower lobe pneumonia. She has a history of underlying dementia and Parkinson's disease which has been worsened due to her recent infection. She is currently on IV antibiotics and is being followed by pulmonary medicine. She likely has some degree of metabolic encephalopathy which is showing some improvement today. We will continue close neurological follow-up for the patient during this admission. She does have evidence of likely worsening underlying vascular dementia. We will continue to follow her progress closely. She is to continue on Exelon for treatment of her dementia symptoms. Overall prognosis at this time remains guarded.
[2017-11-28 17:26] LABS: Glucose,Whole Blood 104 mg/dL (75-99)
[2017-11-28 20:29] LABS: Glucose,Whole Blood 114 mg/dL (75-99)
--- NOTE | 2017-11-28 21:18 | PN ---
PROGRESS NOTE DATE OF SERVICE: 11/28/2017. INTERVAL HISTORY: This 82-year-old woman who was admitted with change in mental status also had COPD acute exacerbation as well as possible bilateral pneumonia, left more than the right and the patient being closely monitored. Multiple consultants, including Neurology and Dr. Drake, are also following the patient closely. The patient is on IV antibiotics. Sensorium has improved slightly today. EXAM: Alert and oriented x2. Pulse 78, blood pressure 100/52, respirations 16, temperature 98.2, pulse ox 98% on 2L. HEENT: Conjunctivae normal. Oral mucosa moist. NECK: No jugular venous distention. No carotid bruits. No lymph node enlargement. CARDIOVASCULAR: S1, S2 muffled. RESPIRATORY: Breath sounds diminished in the bases. A few scattered rhonchi and crackles. ABDOMEN: Soft, nontender. LEGS: No edema. No swelling. NERVOUS SYSTEM: Nonfocal. LABS: CBC within normal limits. Glucose 117. ASSESSMENT: 1. Sepsis. 2. Chronic obstructive pulmonary disease acute exacerbation with acute hypoxic respiratory failure with possible bilateral pneumonia, left more than the right with possibly gram-negative. 3. Change in mental status, acute on chronic with metabolic encephalopathy secondary to sepsis. 4. Dementia. 5. Diabetes mellitus type 2. 6. Hyperlipidemia. 7. Hypertension. 8. Memory impairment. 9. Hypothyroid. 10.Parkinson's. 11.Chronic hypoxic respiratory failure on 2L home O2. 12.History of gout. 13.History of degenerative joint disease. 14.History of cholecystectomy. 15.History of hysterectomy. 16.History of bilateral cataracts. 17.FULL CODE. RECOMMENDATIONS AND DISCUSSION: Continue with current medical management, continue with monitoring and symptomatic treatment. Otherwise at this time, will monitor the patient closely. Continue with the bronchodilators. Continue with antibiotics. Closely follow with Pulmonary. Guarded prognosis. Further recommendations to follow. MMODL / IJN: [id number] /
[2017-11-28] MEDS: MELATONIN 3 MG TABLET PO SCH (21:37)
[2017-11-29] MEDS: LEVOTHYROXINE 112 MCG TAB PO SCH (06:48)
[2017-11-29 07:07] LABS: Glucose,Whole Blood 88 mg/dL (75-99)
[2017-11-29] MEDS: IPRATROPIUM-ALBUTEROL 3 ML NEB INHALATION SCH ×3 (07:53→19:51)
[2017-11-29] MEDS: STIOLTO INHALATION SCH (08:05)
[2017-11-29] MEDS: CARBIDOPA-LEVODOPA ER 50-200MG 1 EACH TABLET.ER PO SCH ×2 (08:42→21:16)
[2017-11-29] MEDS: MELOXICAM 7.5 MG TAB PO SCH (08:42)
[2017-11-29] MEDS: ALLOPURINOL 300 MG TAB PO SCH (08:42)
[2017-11-29] MEDS: PANTOPRAZOLE 40 MG TABLET PO SCH (08:42)
[2017-11-29] MEDS: ASPIRIN 81 MG PO SCH (08:43)
[2017-11-29] MEDS: cefTRIAXone IN SWFI 1,000 MG/10 ML SYRINGE IVP SCH (08:43)
[2017-11-29] MEDS: LISINOPRIL 5 MG TAB PO SCH (08:43)
[2017-11-29] MEDS: PRAVASTATIN SODIUM 40 MG TAB PO SCH (08:43)
[2017-11-29] MEDS: RIVASTIGMINE 4.6MG/24HR PATCH TRANSDERM SCH (08:43)
[2017-11-29] MEDS: MULTIVITAMINS, THERA 1 EACH TAB PO SCH (08:43)
[2017-11-29] MEDS: MECLIZINE 25 MG TAB PO SCH (08:43)
[2017-11-29] MEDS: CO Q-10 100MG PO SCH (08:44)
[2017-11-29] MEDS: POTASSIUM GLUCONATE 550 MG PO SCH (08:44)
[2017-11-29] MEDS: INSULIN ASPART 100 UNIT/ML 1 ML 10 ML VIAL SQ SCH ×4 (10:23→21:16)
[2017-11-29] MEDS: metFORMIN 500 MG TAB PO SCH (10:23)
[2017-11-29] MEDS: HEPARIN SODIUM,PORCINE 5,000 UNIT/ML 1 ML VIAL SQ SCH ×2 (10:24→21:16)
[2017-11-29 11:42] LABS: Basophils % (A) 0 %; Eosinophils # (A) 0.1 k/uL (0-0.7); Eosinophils % (A) 1 %; HCT 34.5 % (34.0-46.0); HGB 11.1 gm/dL (11.4-16.0); Lymphocytes # (A) 0.6 k/uL (1.0-4.8); Lymphocytes % (A) 9 %; MCH 27.5 pg (25.0-35.0); MCHC 32.2 g/dL (31.0-37.0); MCV 85.3 fL (80.0-100.0); Mean Platelet Volume 7.1; Monocytes # (A) 0.3 k/uL (0-1.0); Monocytes % (A) 4 %; Neutrophils # (A) 6.1 k/uL (1.3-7.7); Neutrophils % (A) 86 %; Platelet Count 236 k/uL (150-450); RBC 4.04 m/uL (3.80-5.40); RDW 15.6 % (11.5-15.5); WBC 7.2 k/uL (3.8-10.6)
[2017-11-29 12:01] LABS: Anion Gap 10 mmol/L; Blood Urea Nitrogen 13 mg/dL (7-17); Calcium 8.2 mg/dL (8.4-10.2); Carbon Dioxide 27 mmol/L (22-30); Chloride 103 mmol/L (98-107); Glucose 119 mg/dL (74-99); Potassium 3.1 mmol/L (3.5-5.1); Sodium 140 mmol/L (137-145)
[2017-11-29 12:03] LABS: Glucose,Whole Blood 110 mg/dL (75-99)
[2017-11-29] MEDS: AZITHROMYCIN 500 MG in DEXTROSE 5% IN WATER 250 ML IVPB SCH ×2 (12:17)
[2017-11-29] MEDS ORDERED: Potassium Replacement Protocol 1 EACH MISC MISCELLANE PRN (12:19)
[2017-11-29] MEDS: POTASSIUM CHLORIDE ER 20 MEQ TAB.ER PO SCH ×2 (14:25→17:28)
--- NOTE | 2017-11-29 15:07 | P.PN ---
Subjective Progress Note Date: 11/29/17 This is a 82-year-old female patient with a known history of Parkinson's, dementia, diabetes mellitus, hypothyroidism, hyperlipidemia, hypertension. She is a lifelong nonsmoker. She was brought here to the emergency room yesterday after her daughter found her unresponsive in her bed at home. She did wake up eventually was quite confused and combative. By the time she did get to the emergency room however she was quite pleasant and cooperative. Computed tomography scan of the brain revealed no evidence of acute hemorrhage or mass effect. CT angiogram of the head and neck revealed no significant focal stenosis in the common or internal carotid arteries bilaterally. There is no aneurysmal change at the level of the [place]. Chest x-ray did show some loss of lung volume in the left base in the right perihilar region which is improved today as compared to yesterday. Preliminary urine culture reveals no growth. She has been initiated on ceftriaxone and azithromycin. She is seen today in consultation on the regular medical floor. She is currently awake and alert. She is confused to time and place. Currently maintaining good O2 saturations in the 90s on 2 L/m per nasal cannula. He is afebrile. No leukocytosis. On today's evaluation of the patient is hemodynamically stable. The patient is confused. No signs of any respiratory distress. He has advanced Parkinson disease and dementia. The patient is on it, initial Rocephin and Zithromax treating underlying pneumonia. The blood cultures negative. No significant leukocytosis. Rest of the electrodes are all within normal limits. Objective - Vital Signs Vital signs: Vital Signs Temp 98.5 F 11/29/17 06:17 Pulse 80 11/29/17 13:39 Resp 17 11/29/17 06:17 BP 137/65 11/29/17 06:17 Pulse Ox 93 L 11/29/17 07:55 Intake & Output 11/28/17 11/29/17 11/29/17 18:59 06:59 18:59 Other: Voiding Method Bedside Commode # Voids 3 1 2 # Bowel Movements 4 1 - Exam - Constitutional General appearance: average body habitus - EENT Eyes: EOMI, PERRLA ENT: hard of hearing Ears: bilateral: normal - Neck Neck: normal ROM Carotids: bilateral: upstroke normal Thyroid: bilateral: normal size - Respiratory Respiratory: left: rhonchi - Cardiovascular Rhythm: regular Heart sounds: normal: S1, S2 - Gastrointestinal General gastrointestinal: normal bowel sounds - Integumentary Integumentary: normal turgor - Neurologic Neurologic: focal deficits - Musculoskeletal Musculoskeletal: generalized weakness - Psychiatric Is oriented to person. Disoriented to time and place. - Labs CBC & Chem 7: 11/29/17 10:55 11/29/17 10:55 Labs: Abnormal Lab Results - Last 24 Hours (Table) 11/28/17 11/28/17 11/29/17 Range/Units 17:20 20:27 10:55 Hgb 11.1 L (11.4-16.0) gm/dL RDW 15.6 H (11.5-15.5) % Lymphocytes # 0.6 L (1.0-4.8) k/uL Potassium (3.5-5.1) mmol/L Glucose (74-99) mg/dL POC Glucose (mg/dL) 104 H 114 H (75-99) mg/dL Calcium (8.4-10.2) mg/dL 11/29/17 11/29/17 Range/Units 10:55 12:02 Hgb (11.4-16.0) gm/dL RDW (11.5-15.5) % Lymphocytes # (1.0-4.8) k/uL Potassium 3.1 L (3.5-5.1) mmol/L Glucose 119 H (74-99) mg/dL POC Glucose (mg/dL) 110 H (75-99) mg/dL Calcium 8.2 L (8.4-10.2) mg/dL Microbiology - Last 24 Hours (Table) 11/27/17 08:54 Urine Culture - Final Urine,Catheterized 11/27/17 17:40 Blood Culture - Preliminary Blood No Growth after 24 hours Assessment and Plan Plan: Impression: #1 Altered mental status suspect secondary to a left lower lobe pneumonia. #2 Acute hypoxic respiratory failure secondary to above. #3 Parkinson's disease. #4 Dementia. #5 Hypothyroidism. #6 Hyperlipidemia. #7 Hypertension. #8 Diabetes mellitus. Plan: Continue same treatment. Neurology evaluation. The patient is on the appropriate antibiotic coverage. We'll continue to follow. Overall prognosis poor based on her age and advanced comorbidities including advanced dementia. Aspiration precautions.
[2017-11-29 15:18] VITALS: RESP 18
[2017-11-29] MEDS: HYDROcodone/APAP 10-325MG 1 EACH TAB PO PRN (17:27)
[2017-11-29 17:39] LABS: Glucose,Whole Blood 121 mg/dL (75-99)
--- NOTE | 2017-11-29 20:02 | CT ---
EXAMINATION TYPE: CT brain wo con DATE OF EXAM: 11/29/2017 COMPARISON: 11/27/2017 INDICATION: Patient poor historian. Altered mental status. DLP: 795.5 mGycm, Automated exposure control for dose reduction was used. CONTRAST: None CT of the brain is performed utilizing 3 mm thick sections through the posterior fossa and 3 mm thick sections through the remaining calvarium. Study is not performed within 24 hours of arrival to the hospital. No abnormal hyperdensity is present to suggest an acute intracranial hemorrhage. No mass lesion is evident. No acute infarcts are evident. Mild periventricular white matter hypodensity is present, likely on th e basis of chronic white matter ischemic change. Ventricles and sulci are appropriate for the patient age. Right MCA region appears unchanged. Paranasal sinuses and mastoid air cells within the [id number] are clear. Hyperostosis frontalis in ternus is present, normal variant. Right mastoid air cells are underpneumatized. No significant interval changes evident. IMPRESSIONS: 1. Mild periventricular white matter ischemic changes.
[2017-11-29 21:05] LABS: Glucose,Whole Blood 115 mg/dL (75-99)
[2017-11-29] MEDS: MELATONIN 3 MG TABLET PO SCH (21:16)
--- NOTE | 2017-11-29 22:19 | PN ---
PROGRESS NOTE DATE OF SERVICE: 11/29/17 INTERVAL HISTORY: This 82-year-old woman was admitted with COPD acute exacerbation also had a possible left lower lobe pneumonia. Patient also had features of sepsis. The patient improved significantly. CT scan of the brain was also repeated today which showed mild periventricular white matter changes. No chest pain. No palpitations. No fever. EXAM: Alert and oriented times three. Pulse 94, blood pressure 130/70, respiration 20, temperature 98.5, pulse ox 98% on 3 L. HEENT: Conjunctivae normal. NECK: No jugular venous distention. Cardiovascular: S1, S2 muffled. Respirations: Breath sounds diminished in the bases. No rhonchi. No crackles. Abdomen is soft, nontender. No mass palpable. Legs: No edema and no swelling. Central nervous system: Diffusely weak. LABS: WBC 7.7, hemoglobin 11.1, potassium 3.1. ASSESSMENT: 1. Chronic obstructive pulmonary disease acute exacerbation with acute hypoxic respiratory failure with possible bilateral pneumonia, left more than the right with sepsis present on admission, possibly gram-negative. 2. Change in mental status, acute on chronic metabolic encephalopathy secondary to sepsis. 3. Dementia. 4. Diabetes type 2. 5. Hypertension. 6. Hyperlipidemia. 7. Memory impairment. 8. Hypothyroidism. 9. Parkinson's. 10.Chronic hypoxic respiratory failure on 2 L home O2. 11.History of gout. 12.History of degenerative joint disease. 13.History of cholecystectomy. 14.History of hysterectomy. 15.History of bilateral cataracts. 16.FULL CODE. RECOMMENDATIONS AND DISCUSSION: Recommend to continue current medications, management and symptomatic treatment. Otherwise at this time I recommend to monitor the patient closely. Supplement potassium. Otherwise, continue the antibiotics. Guarded prognosis. Further recommendations to follow. MMODL / IJN: [id number] /
--- NOTE | 2017-11-29 23:25 | P.PN ---
Subjective Progress Note Date: 11/29/17 This patient is a 82-year-old female who was admitted to the [facility] yesterday for evaluation of altered mental status and worsening dementia. She has a history of underlying dementia and Parkinson's disease. She was very unresponsive at home yesterday morning and this was a reason for admission. She is now back to near baseline level of function. She underwent a computed tomography scan of the brain which revealed no evidence of acute hemorrhage or mass effect. CTA angiogram of the head and neck reveal no significant focal stenosis in the common or internal carotid arteries bilaterally. There was no aneurysmal change at the level of the [place]. Patient is being treated for left lower lobe pneumonia. She is currently on IV antibiotics including azithromycin and ceftriaxone. She'll be switched to oral antibiotics tomorrow. The patient otherwise seems to be resting comfortably. As noted she does have underlying dementia which remains stable. We will continue close neurological follow-up for the patient. As noted there was concern for possibility of right MCA aneurysm on CAT scan of the brain however this was not appreciated on the CTA angiogram of the head and neck. Patient's daughter sitting at bedside and states there is been some slight improvement but at times she still becomes confused. She does have some degree of hypoxic encephalopathy which is being treated by pulmonary medicine for her left lower lobe pneumonia. Hopefully she will continue to show improvement. The patient did have an episode of acute confusion this evening which was witnessed by the nursing staff. She was sent for a repeat computed tomography scan of the brain which failed to reveal any new or acute changes. We will continue close follow-up with the patient. We will continue close neurological follow-up with the patient during this admission. Objective - Vital Signs Vital signs: Vital Signs Temp 98.5 F 11/29/17 15:00 Pulse 94 11/29/17 15:00 Resp 18 11/29/17 15:16 BP 131/75 11/29/17 15:00 Pulse Ox 98 11/29/17 15:00 Intake & Output 11/28/17 11/29/17 11/29/17 18:59 06:59 18:59 Other: Voiding Method Bedside Commode # Voids 3 1 3 # Bowel Movements 4 1 - Exam Physical examination: PHYSICAL EXAMINATION: Patient is resting comfortably in bed. VITAL SIGNS: Blood pressure is [131/75]. Heart rate is [94]. Respiration is [20] . Temperature is [98.5]. HEENT: Head is atraumatic, neck is supple, there were no carotid bruits. CHEST: Lungs are clear to auscultation and percussion. CARDIAC: S1, S2 normal rate and rhythm. There is no murmur. ABDOMEN: Soft and nontender. Bowel sounds are present. EXTREMITIES: There is no pedal edema. Peripheral pulses are present. Neurological examination: Patient's neurological examination is unchanged from yesterday. - Labs CBC & Chem 7: 11/29/17 10:55 11/29/17 10:55 Labs: Abnormal Lab Results - Last 24 Hours (Table) 11/28/17 11/28/17 11/29/17 Range/Units 17:20 20:27 10:55 Hgb 11.1 L (11.4-16.0) gm/dL RDW 15.6 H (11.5-15.5) % Lymphocytes # 0.6 L (1.0-4.8) k/uL Potassium (3.5-5.1) mmol/L Glucose (74-99) mg/dL POC Glucose (mg/dL) 104 H 114 H (75-99) mg/dL Calcium (8.4-10.2) mg/dL 11/29/17 11/29/17 Range/Units 10:55 12:02 Hgb (11.4-16.0) gm/dL RDW (11.5-15.5) % Lymphocytes # (1.0-4.8) k/uL Potassium 3.1 L (3.5-5.1) mmol/L Glucose 119 H (74-99) mg/dL POC Glucose (mg/dL) 110 H (75-99) mg/dL Calcium 8.2 L (8.4-10.2) mg/dL Microbiology - Last 24 Hours (Table) 11/27/17 08:54 Urine Culture - Final Urine,Catheterized 11/27/17 17:40 Blood Culture - Preliminary Blood No Growth after 24 hours Assessment and Plan (1) Acute metabolic encephalopathy Current Visit: Yes Status: Acute Code(s): G93.41 - METABOLIC ENCEPHALOPATHY SNOMED Code(s): 89355291 (2) Vascular dementia Current Visit: Yes Status: Acute Code(s): F01.50 - VASCULAR DEMENTIA WITHOUT BEHAVIORAL DISTURBANCE SNOMED Code(s): 027824741 (3) Aneurysm Current Visit: Yes Status: Acute Code(s): I72.9 - ANEURYSM OF UNSPECIFIED SITE SNOMED Code(s): 297866645 (4) Parkinsons disease Current Visit: Yes Status: Acute Code(s): G20 - PARKINSON'S DISEASE SNOMED Code(s): 38469435 Plan: This patient is a 82-year-old female who is being evaluated for altered mental status and confusion. She has a history of underlying dementia and Parkinson's disease. She is being treated by pulmonary medicine for left lower lobe pneumonia. She had an episode of acute confusion today and unresponsiveness. She was sent for a follow-up computed tomography scan of the brain today which was reviewed and is negative for any acute change. Patient's overall prognosis at this time given her age and advance comorbidities including her advanced dementia maker prognosis very guarded. We will continue current treatment plans with the patient. Hopefully she will be able to discharge home soon. We will continue close neurological follow-up with the patient during this admission.
[2017-11-30] MEDS: LEVOTHYROXINE 112 MCG TAB PO SCH (06:27)
[2017-11-30 06:32] VITALS: BP 155/83; TEMP 98.3
[2017-11-30 07:05] LABS: Glucose,Whole Blood 100 mg/dL (75-99)
[2017-11-30] MEDS: IPRATROPIUM-ALBUTEROL 3 ML NEB INHALATION SCH ×2 (08:00→12:35)
[2017-11-30] MEDS: INSULIN ASPART 100 UNIT/ML 1 ML 10 ML VIAL SQ SCH ×2 (08:33→12:02)
[2017-11-30] MEDS: MECLIZINE 25 MG TAB PO SCH (08:42)
[2017-11-30] MEDS: CARBIDOPA-LEVODOPA ER 50-200MG 1 EACH TABLET.ER PO SCH (08:42)
[2017-11-30] MEDS: metFORMIN 500 MG TAB PO SCH (08:42)
[2017-11-30] MEDS: MULTIVITAMINS, THERA 1 EACH TAB PO SCH (08:42)
[2017-11-30] MEDS: ASPIRIN 81 MG PO SCH (08:42)
[2017-11-30] MEDS: PRAVASTATIN SODIUM 40 MG TAB PO SCH (08:42)
[2017-11-30] MEDS: LISINOPRIL 5 MG TAB PO SCH (08:42)
[2017-11-30] MEDS: RIVASTIGMINE 4.6MG/24HR PATCH TRANSDERM SCH (08:42)
[2017-11-30] MEDS: ALLOPURINOL 300 MG TAB PO SCH (08:42)
[2017-11-30] MEDS: POTASSIUM GLUCONATE 550 MG PO SCH (08:42)
[2017-11-30] MEDS: PANTOPRAZOLE 40 MG TABLET PO SCH (08:42)
[2017-11-30] MEDS: MELOXICAM 7.5 MG TAB PO SCH (08:43)
[2017-11-30] MEDS: HEPARIN SODIUM,PORCINE 5,000 UNIT/ML 1 ML VIAL SQ SCH (08:43)
[2017-11-30] MEDS: STIOLTO INHALATION SCH (09:00)
[2017-11-30] MEDS ORDERED: cefTRIAXone IN SWFI 1,000 MG/10 ML SYRINGE IVP SCH (09:00)
[2017-11-30 10:04] LABS: Basophils % (A) 0 %; Eosinophils # (A) 0.1 k/uL (0-0.7); Eosinophils % (A) 2 %; HGB 11.4 gm/dL (11.4-16.0); Lymphocytes # (A) 0.9 k/uL (1.0-4.8); Lymphocytes % (A) 17 %; MCH 26.7 pg (25.0-35.0); MCHC 31.6 g/dL (31.0-37.0); MCV 84.4 fL (80.0-100.0); Mean Platelet Volume 7.5; Monocytes # (A) 0.3 k/uL (0-1.0); Monocytes % (A) 5 %; Neutrophils # (A) 4.1 k/uL (1.3-7.7); Neutrophils % (A) 75 %; Platelet Count 212 k/uL (150-450); RBC 4.26 m/uL (3.80-5.40); RDW 15.3 % (11.5-15.5); WBC 5.5 k/uL (3.8-10.6)
[2017-11-30 10:34] LABS: Anion Gap 8 mmol/L; Blood Urea Nitrogen 11 mg/dL (7-17); Calcium 8.5 mg/dL (8.4-10.2); Carbon Dioxide 30 mmol/L (22-30); Chloride 103 mmol/L (98-107); Glucose 116 mg/dL (74-99); Potassium 3.7 mmol/L (3.5-5.1); Sodium 141 mmol/L (137-145)
[2017-11-30 12:00] LABS: Glucose,Whole Blood 112 mg/dL (75-99)
[2017-11-30] MEDS ORDERED: AZITHROMYCIN 500 MG TAB PO SCH (12:00)
[2017-11-30 12:35] VITALS: PULSE 76
--- NOTE | 2017-11-30 14:58 | P.PN ---
Subjective Progress Note Date: 11/30/17 Principal diagnosis: Altered mental status suspect secondary to a left lower lobe pneumonia This is a 82-year-old female patient with a known history of Parkinson's, dementia, diabetes mellitus, hypothyroidism, hyperlipidemia, hypertension. She is a lifelong nonsmoker. She was brought here to the emergency room yesterday after her daughter found her unresponsive in her bed at home. She did wake up eventually was quite confused and combative. By the time she did get to the emergency room however she was quite pleasant and cooperative. Computed tomography scan of the brain revealed no evidence of acute hemorrhage or mass effect. CT angiogram of the head and neck revealed no significant focal stenosis in the common or internal carotid arteries bilaterally. There is no aneurysmal change at the level of the [place]. Chest x-ray did show some loss of lung volume in the left base in the right perihilar region which is improved today as compared to yesterday. Preliminary urine culture reveals no growth. She has been initiated on ceftriaxone and azithromycin. She is seen today in consultation on the regular medical floor. She is currently awake and alert. She is confused to time and place. Currently maintaining good O2 saturations in the 90s on 2 L/m per nasal cannula. He is afebrile. No leukocytosis. On today's evaluation of 018 the patient is hemodynamically stable. The patient is confused. No signs of any respiratory distress. He has advanced Parkinson disease and dementia. The patient is on it, initial Rocephin and Zithromax treating underlying pneumonia. The blood cultures negative. No significant leukocytosis. Rest of the electrodes are all within normal limits. On 11/30/2017 patient seen in follow-up on medical surgical floor. He is awake , alert, oriented to place, to month and the year. No evidence of delirium, her mentation seems to be back to baseline. She denies any distress, denies any dyspnea, denies any chest pain, no fever or chills. Cultures remain negative, patient was able to bring up some thick brownish colored sputum, which was sent for culture. Patient remains on a combination of empiric antibiotics in the form of Zithromax and Rocephin, nebulized bronchodilators, and she is clinically improving. No febrile episodes while inpatient, pulse ox on 2 L per nasal cannula is 94%, vital signs are stable, respirations are even though nonlabored. Lung sounds clear, patient just has very slight left posterior lower chest wall tenderness to palpation. Overall clinically she is much improved, and from pulmonary standpoint she is clear for discharge home Objective - Vital Signs Vital signs: Vital Signs Temp 98.3 F 11/30/17 06:31 Pulse 72 11/30/17 08:12 Resp 18 11/30/17 06:31 BP 155/83 11/30/17 06:31 Pulse Ox 94 L 11/30/17 06:31 Intake & Output 11/29/17 11/30/17 11/30/17 18:59 06:59 18:59 Intake Total 600 Balance 600 Intake: Oral 600 Other: # Voids 3 1 # Bowel Movements 1 - Exam - Constitutional General appearance: average body habitus - EENT Eyes: EOMI, PERRLA ENT: hard of hearing Ears: bilateral: normal - Neck Neck: normal ROM Carotids: bilateral: upstroke normal Thyroid: bilateral: normal size - Respiratory Respiratory: Clear - Cardiovascular Rhythm: regular Heart sounds: normal: S1, S2 - Gastrointestinal General gastrointestinal: normal bowel sounds - Integumentary Integumentary: normal turgor - Neurologic Neurologic: focal deficits - Musculoskeletal Musculoskeletal: generalized weakness - Psychiatric Is oriented to person. Disoriented to time and place. - Labs CBC & Chem 7: 11/30/17 09:24 11/30/17 09:24 Labs: Abnormal Lab Results - Last 24 Hours (Table) 11/29/17 11/29/17 11/30/17 Range/Units 17:10 20:49 07:03 Lymphocytes # (1.0-4.8) k/uL Glucose (74-99) mg/dL POC Glucose (mg/dL) 121 H 115 H 100 H (75-99) mg/dL 11/30/17 11/30/17 11/30/17 Range/Units 09:24 09:24 11:57 Lymphocytes # 0.9 L (1.0-4.8) k/uL Glucose 116 H (74-99) mg/dL POC Glucose (mg/dL) 112 H (75-99) mg/dL Microbiology - Last 24 Hours (Table) 11/27/17 17:40 Blood Culture - Preliminary Blood No Growth after 48 hours Assessment and Plan Plan: Assessment: #1 Altered mental status suspect secondary to a left lower lobe pneumonia. #2 Acute hypoxic respiratory failure secondary to above. #3 Parkinson's disease. #4 Dementia. #5 Hypothyroidism. #6 Hyperlipidemia. #7 Hypertension. #8 Diabetes mellitus. Plan: Neurologically patient has improved, she is awake, alert and oriented 2, to place, month and the year, no evidence of delirium. No fever no chills, no worsening dyspnea continue current antibiotic coverage, continue nebulized bronchodilators, and 10 aspiration precautions. No rhonchi, no crackles, no wheezes. Neurology consultation was noted. Lab work shows no leukocytosis, renal profile and electrolytes were within normal limits. Overall patient's stable, improved, and can be discharged home today on outpatient course of oral antibiotics. Follow-up with Dr. Drake in 1 week I performed a history & physical examination of the patient and discussed their management with my nurse practitioner, Rafaela Munoz. I reviewed the nurse practitioner's note and agree with the documented findings and plan of care. Lung sounds are clear. The findings and the impression was discussed with the patient. I attest to the documentation by the nurse practitioner. Time with Patient: Less than 30
[2017-11-30] MEDS: HYDROcodone/APAP 10-325MG 1 EACH TAB PO PRN (16:17)
--- NOTE | 2017-11-30 17:29 | DS ---
DISCHARGE SUMMARY DATE OF SERVICE: 11/30/2017. FINAL DIAGNOSES: 1. Chronic obstructive pulmonary disease acute exacerbation with acute hypoxic respiratory failure with possible bilateral pneumonia, left more than the right with sepsis, present on admission possibly gram-negative. 2. Change in mental status acute metabolic encephalopathy secondary to sepsis. 3. Dementia. 4. Diabetes mellitus type 2. 5. Hypertension. 6. Hyperlipidemia. 7. Memory impairment. 8. Hypothyroidism. 9. Parkinson's. 10.Chronic hypoxic respiratory failure on home O2 of 2 L. 11.History of gout. 12.History of degenerative joint disease. 13.History of cholecystectomy. 14.Hysterectomy. 15.History of bilateral cataracts. 16.FULL CODE. DISCHARGE DISPOSITION: The patient is being discharged in stable condition with guarded prognosis. Pulmonary cleared the patient for discharge. Total time taken 35 minutes. HISTORY OF PRESENT ILLNESS: This 82-year-old woman with a past medical history of multiple medical problems was admitted with COPD acute exacerbation as well as pneumonia and possible sepsis, treated with bronchiolitis and antibiotics. Patient improved significantly. Pulmonary Dr. Drake and Dr. Plaza saw the patient. Brain CT scan was also done. Dr. Casey Fried saw the patient as well and recommended outpatient followup. CT scan of the brain showed mild periventricular white matter changes. EXAM: On exam, vital signs are stable. CARDIOVASCULAR: S1, S2 RESPIRATORY: A few scattered rhonchi. ABDOMEN: Soft. NERVOUS SYSTEM: No focal deficits. DISCHARGE ADVICE: 1. Diet is cardiac. 2. Activity is limited until followup. 3. Follow up with Dr. Oquendo in 2-3 days. 4. Follow up with Dr. Casey Fried and Dr. Drake as recommended. 5. Home care has been arranged. MEDICATIONS: 1. Ventolin 2.5 q.i.d. and p.r.n. 2. Zyloprim 300 mg p.o. daily. 3. Aspirin 81 mg p.o. daily. 4. Zithromax 500 mg daily for 5 days. 5. Carbidopa levodopa 50/200 one p.o. b.i.d. 6. Ceftin 500 mg p.o. b.i.d. 5 days. 7. Venus 10 mg q.6h p.r.n. 8. Synthroid 112 mcg p.o. daily. 9. Zestril 5 mg b.i.d. 10.Antivert 25 mg p.o. daily. 11.Mobic 7.5 mg p.o. daily. 12.Glucophage 500 mg p.o. daily. 13.Multivitamins 1 p.o. daily. 14.Protonix 40 mg daily. 15.Potassium gluconate 550 mg p.o. daily. 16.Pravachol 40 mg p.o. daily. 17.Rivastigmine 4.6 mg per 24 hours 1 p.o. daily. 18.Stiolto Respimat 2 b.i.d. 19.Coenzyme Q 100 mg p.o. daily. Once again, the patient is being discharged in stable condition with guarded prognosis. MMODL / IJN: [id number] /
== END 2017-11-30 16:31 | disposition home health service (06) | DRG 871 ==
LOC: EC 08:01 → 4MS4W 12:32
PROVIDERS: ADMIT Hospitalist; ATTEND Hospitalist
DX: A41.50 Gram-negative sepsis, unspecified (principal); J15.6 Pneumonia due to other Gram-negative bacteria; G93.41 Metabolic encephalopathy; J96.21 Acute and chronic respiratory failure with hypoxia; G93.1 Anoxic brain damage, not elsewhere classified; J44.0 Chronic obstructive pulmonary disease with (acute) lower respiratory infection; J44.1 Chronic obstructive pulmonary disease with (acute) exacerbation; R65.20 Severe sepsis without septic shock; E03.9 Hypothyroidism, unspecified; E78.5 Hyperlipidemia, unspecified; F01.50 Vascular dementia, unspecified severity, without behavioral disturbance, psychotic disturbance, mood disturbance, and anxiety; G20 Parkinson's disease; I10 Essential (primary) hypertension; G89.29 Other chronic pain; M10.9 Gout, unspecified; R15.9 Full incontinence of feces; R32 Unspecified urinary incontinence; E11.42 Type 2 diabetes mellitus with diabetic polyneuropathy; M15.9 Polyosteoarthritis, unspecified; H54.3 Unqualified visual loss, both eyes; H91.90 Unspecified hearing loss, unspecified ear; Z79.899 Other long term (current) drug therapy; Z79.82 Long term (current) use of aspirin; Z79.890 Hormone replacement therapy; Z79.84 Long term (current) use of oral hypoglycemic drugs; Z88.5 Allergy status to narcotic agent; Z99.81 Dependence on supplemental oxygen; Z90.710 Acquired absence of both cervix and uterus; Z90.49 Acquired absence of other specified parts of digestive tract; Z98.42 Cataract extraction status, left eye; Z98.41 Cataract extraction status, right eye; Z96.1 Presence of intraocular lens; Z82.49 Family history of ischemic heart disease and other diseases of the circulatory system
CPT/HCPCS: 36415; 70450; 70496; 70498; 71045; 71046; 80048; 80053; 80306; 81001; 82140; 82550; 82553; 83036; 84484; 85025; 85610; 85730; 87040; 87086; 90471; 90732; 93005; 94640; 94760; 96374; 99285

== ENCOUNTER 2018-06-29 17:31 | Emergency (ER) | payer MEDICARE ==
[2018-06-29 17:43] VITALS: RESP 18
[2018-06-29] MEDS ORDERED: SODIUM CHLORIDE 0.9% 1,000 ML IV STA (18:53)
--- NOTE | 2018-06-29 18:53 | ED ---
Neuro HPI <Sydni Vasques - Last Filed: 06/29/18 19:01> - General Source: patient, family Mode of arrival: wheelchair Limitations: no limitations - History of Present Illness Is the patient presenting with stroke symptoms?: Yes <Manuel Avery - Last Filed: 06/29/18 22:25> - General Chief Complaint: Neuro Symptoms/Deficit Stated Complaint: Confused/weakness Time Seen by Provider: 06/29/18 18:29 - History of Present Illness Initial Comments: 83-year-old female patient with past medical history significant for COPD, dementia, diabetes mellitus, hypertension, and Parkinson's disease presents to the emergency department today for evaluation of generalized weakness and slurred speech. Family reports that patient started having symptoms Thursday morning. States that she seemed more weak than usual, did experience a fall after becoming dizzy, and had persistent slurred speech throughout the night. States they did present to the primary care physician for evaluation this morning were told to come to the emergency department. Patient did have similar symptoms last year and ended up being diagnosed with a lung infection. Patient states she is having a mild generalized headache. She reports no blurred or double vision. Denies any focal weakness, numbness, or tingling to her extremities. Patient denies any recent rash, fever, chills, shortness breath , chest pain, abdominal pain, nausea, vomiting, diarrhea, constipation, back pain, hematuria, dysuria, urinary urgency, urinary frequency, or any other complaints. (Sydni Vasques) - Related Data Home Medications: Home Medications Medication Instructions Recorded Confirmed Allopurinol [Zyloprim] 300 mg PO DAILY 11/27/17 06/29/18 Aspirin EC [Ecotrin Low Dose] 81 mg PO DAILY 11/27/17 06/29/18 Carbidopa-Levodopa ER 50-200Mg 1 tab PO BID 11/27/17 06/29/18 [Sinemet CR 50-200 mg] HYDROcodone/APAP 10-325MG [[place] 1 tab PO QID PRN 11/27/17 06/29/18 10-325] Levothyroxine Sodium [Synthroid] 112 mcg PO DAILY 11/27/17 06/29/18 Lisinopril [Zestril] 5 mg PO DAILY 11/27/17 06/29/18 Meclizine [Antivert] 25 mg PO Q8H PRN 11/27/17 06/29/18 Meloxicam [Mobic] 7.5 mg PO DAILY 11/27/17 06/29/18 Multivitamins, Thera [Multivitamin 1 tab PO DAILY 11/27/17 06/29/18 (formulary)] Pravastatin Sodium [Pravachol] 40 mg PO DAILY 11/27/17 06/29/18 Ubidecarenone [Co Q-10] 100 mg PO DAILY 11/27/17 06/29/18 metFORMIN HCL [Glucophage] 500 mg PO DAILY 11/27/17 06/29/18 Donepezil [Aricept] 10 mg PO HS 06/29/18 06/29/18 Ipratropium-Albuterol Nebulize 3 ml INHALATION RT-QID PRN 06/29/18 06/29/18 [Duoneb 0.5 mg-3 mg/3 ml Soln] Umeclidinium Brm/Vilanterol Tr 1 puff INHALATION RT-DAILY 06/29/18 06/29/18 [Anoro Ellipta 62.5-25 Mcg INH] Previous Rx's Medication Instructions Recorded Pantoprazole [Protonix] 40 mg PO AC-BRKFST #10 tablet. 11/30/17 Allergies/Adverse Reactions: Allergies Allergy/AdvReac Type Severity Reaction Status Date / Time codeine Allergy Rash/Hives Verified 06/29/18 20:13 Review of Systems ROS Other: All systems not noted in ROS Statement are negative. <Sydni Vasques - Last Filed: 06/29/18 19:01> ROS Other: All systems not noted in ROS Statement are negative. <Manuel Avery - Last Filed: 06/29/18 22:25> ROS Statement: Those systems with pertinent positive or pertinent negative responses have been documented in the HPI. General Exam General appearance: alert, in no apparent distress, other (This is a well- developed, well-nourished elderly female patient in no acute distress. Vital signs upon presentation are temperature 98.2F, pulse 82, respirations 18, blood pressure 154/78, pulse ox 95% on room air.) Eye exam: Present: normal appearance, PERRL, EOMI. Absent: scleral icterus, conjunctival injection, nystagmus, periorbital swelling ENT exam: Present: normal exam, normal oropharynx, mucous membranes moist Respiratory exam: Present: normal lung sounds bilaterally. Absent: respiratory distress, wheezes, rales, rhonchi, stridor Cardiovascular Exam: Present: regular rate, normal rhythm, normal heart sounds. Absent: systolic murmur, diastolic murmur, rubs, gallop, clicks GI/Abdominal exam: Present: soft, normal bowel sounds. Absent: distended, tenderness, guarding, rebound, rigid Neurological exam: Present: alert, oriented X3, CN II-XII intact Expanded Cranial nerves: Tongue Deviation: Normal, Nystagmus: Normal, Facial Sensation: Normal Sensory exam: Upper Extremity Light Touch: Abnormal Right, Lower Extremity Light Touch: Abnormal Right Motor strength exam: RUE: 5, LUE: 5, RLE: 5, LLE: 5 Psychiatric exam: Present: normal affect, normal mood Skin exam: Present: warm, dry, intact, normal color. Absent: rash <Sydni Vasques M - Last Filed: 06/29/18 19:01> Limitations: no limitations General appearance: alert, in no apparent distress Head exam: Present: atraumatic, normocephalic, normal inspection Eye exam: Present: normal appearance, PERRL, EOMI. Absent: scleral icterus, conjunctival injection, periorbital swelling ENT exam: Present: normal exam, mucous membranes moist Neck exam: Present: normal inspection. Absent: tenderness, meningismus, lymphadenopathy Respiratory exam: Present: normal lung sounds bilaterally. Absent: respiratory distress, wheezes, rales, rhonchi, stridor Cardiovascular Exam: Present: regular rate, normal rhythm, normal heart sounds. Absent: systolic murmur, diastolic murmur, rubs, gallop, clicks GI/Abdominal exam: Present: soft, normal bowel sounds. Absent: distended, tenderness, guarding, rebound, rigid Extremities exam: Present: normal inspection, full ROM, normal capillary refill. Absent: tenderness, pedal edema, joint swelling, calf tenderness Back exam: Present: normal inspection Neurological exam: Present: alert, oriented X3, CN II-XII intact Psychiatric exam: Present: normal affect, normal mood Skin exam: Present: warm, dry, intact, normal color. Absent: rash <Manuel Avery B - Last Filed: 06/29/18 22:25> - General Exam Comments Initial Comments: NIH 2 - slurred speech (Manuel Avery) Stroke MDM - EKG Data -: EKG Interpreted by Me <Sydni Vasques - Last Filed: 06/29/18 19:01> - Lab Data Result diagrams: 06/29/18 18:30 06/29/18 18:30 - NIH Stroke Scale 1a. Level of Consciousness: (0) alert 1b. LOC Questions: (0) answers correctly 1c. LOC Commands: (0) performs tasks correctly 3. Visual: (0) no visual loss 5a. Motor Arm Left: (0) no drift 5b. Motor Arm Right: (0) no drift 6a. Motor Leg Left: (0) no drift 6b. Motor Leg Right: (0) no drift 7. Limb Ataxia: (0) absent 8. Sensory: (0) normal 9. Best Language: (1) mild/moderate aphasia 10. Dysarthria: (0) normal 11. Extinction/Inattention: (0) no abnormality - Radiology Data Radiology results: report reviewed (S x-ray shows bronchial regular pneumonia), image reviewed <Manuel Avery - Last Filed: 06/29/18 22:25> - Lab Data Lab Results 06/29/18 06/29/18 06/29/18 Range/Units 18:30 18:30 18:30 WBC 10.4 (3.8-10.6) k/uL RBC 3.45 L (3.80-5.40) m/uL Hgb 9.1 L (11.4-16.0) gm/dL Hct 29.7 L (34.0-46.0) % MCV 86.0 (80.0-100.0) fL MCH 26.4 (25.0-35.0) pg MCHC 30.7 L (31.0-37.0) g/dL RDW 16.6 H (11.5-15.5) % Plt Count 337 (150-450) k/uL Neutrophils % 85 % Lymphocytes % 10 % Monocytes % 3 % Eosinophils % 1 % Basophils % 0 % Neutrophils # 8.8 H (1.3-7.7) k/uL Lymphocytes # 1.0 (1.0-4.8) k/uL Monocytes # 0.3 (0-1.0) k/uL Eosinophils # 0.1 (0-0.7) k/uL Basophils # 0.0 (0-0.2) k/uL Hypochromasia Moderate Anisocytosis Slight PT (9.0-12.0) sec INR (<1.2) APTT (22.0-30.0) sec Sodium 143 (137-145) mmol/L Potassium 4.7 (3.5-5.1) mmol/L Chloride 107 (98-107) mmol/L Carbon Dioxide 28 (22-30) mmol/L Anion Gap 8 mmol/L BUN 25 H (7-17) mg/dL Creatinine 0.76 (0.52-1.04) mg/dL Est GFR (CKD-EPI)AfAm 84 (>60 ml/min/1.73 sqM) Est GFR (CKD-EPI)NonAf 73 (>60 ml/min/1.73 sqM) Glucose 98 (74-99) mg/dL Calcium 8.7 (8.4-10.2) mg/dL Total Bilirubin 0.3 (0.2-1.3) mg/dL AST 19 (14-36) U/L ALT 13 (9-52) U/L Alkaline Phosphatase 70 (38-126) U/L Total Creatine Kinase 52 (30-135) U/L CK-MB (CK-2) 0.8 (0.0-2.4) ng/mL CK-MB (CK-2) Rel Index 1.5 Troponin I <0.012 (0.000-0.034) ng/mL Total Protein 6.2 L (6.3-8.2) g/dL Albumin 3.5 (3.5-5.0) g/dL 06/29/18 Range/Units 18:30 WBC (3.8-10.6) k/uL RBC (3.80-5.40) m/uL Hgb (11.4-16.0) gm/dL Hct (34.0-46.0) % MCV (80.0-100.0) fL MCH (25.0-35.0) pg MCHC (31.0-37.0) g/dL RDW (11.5-15.5) % Plt Count (150-450) k/uL Neutrophils % % Lymphocytes % % Monocytes % % Eosinophils % % Basophils % % Neutrophils # (1.3-7.7) k/uL Lymphocytes # (1.0-4.8) k/uL Monocytes # (0-1.0) k/uL Eosinophils # (0-0.7) k/uL Basophils # (0-0.2) k/uL Hypochromasia Anisocytosis PT 10.1 (9.0-12.0) sec INR 0.9 (<1.2) APTT 25.9 (22.0-30.0) sec Sodium (137-145) mmol/L Potassium (3.5-5.1) mmol/L Chloride (98-107) mmol/L Carbon Dioxide (22-30) mmol/L Anion Gap mmol/L BUN (7-17) mg/dL Creatinine (0.52-1.04) mg/dL Est GFR (CKD-EPI)AfAm (>60 ml/min/1.73 sqM) Est GFR (CKD-EPI)NonAf (>60 ml/min/1.73 sqM) Glucose (74-99) mg/dL Calcium (8.4-10.2) mg/dL Total Bilirubin (0.2-1.3) mg/dL AST (14-36) U/L ALT (9-52) U/L Alkaline Phosphatase (38-126) U/L Total Creatine Kinase (30-135) U/L CK-MB (CK-2) (0.0-2.4) ng/mL CK-MB (CK-2) Rel Index Troponin I (0.000-0.034) ng/mL Total Protein (6.3-8.2) g/dL Albumin (3.5-5.0) g/dL - Medical Decision Making 83 female presented with slurred speech neurological symptoms in nature 4. CT CTA negative for any intervention. Patient given aspirin will place on Levaquin for possible pneumonia and transferred to [facility] for neurological evaluation (Manuel Avery) 06/29/18 19:07 EKG obtained at 1831 shows normal sinus rhythm with a ventricular rate of 85, NE interval 136, QRS duration 82, QT 388, QTC 461. No evidence of ST elevation or depression. 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 History of Any Multi-Drug Resistant Organisms: None Reported Past Surgical History: Cholecystectomy, Hysterectomy, Tonsillectomy Additional Past Surgical History / Comment(s): Bilateral cataract removals and lenses were lazered Past Anesthesia/Blood Transfusion Reactions: No Reported Reaction Past Psychological History: No Psychological Hx Reported Smoking Status: Never smoker - Past Family History Father Family Medical History: Myocardial Infarction (PA) Additional Family Medical History / Comment(s): Father of a PA at the age of 64yrs. Mother Family Medical History: Congestive Heart Failure (CHF) Additional Family Medical History / Comment(s): Mother of CHF at the age of 72 yrs. <Manuel Avery - Last Filed: 06/29/18 22:25> Course <Sydni Vasques - Last Filed: 06/29/18 19:01> <Manuel Avery - Last Filed: 06/29/18 22:25> Vital Signs 06/29/18 06/29/18 17:39 19:44 Temperature 98.2 F Pulse Rate 82 79 Respiratory 18 18 Rate Blood Pressure 154/78 151/80 O2 Sat by Pulse 95 96 Oximetry - Reevaluation(s) Reevaluation #1: 06/29/18 22:25 A she has no significant improvement in symptoms here in the ER (Manuel Avery) Reevaluation #2: 06/29/18 22:25 spoke w Family, updated re conditoin, prognosis, questions answered, okay for transfer to [facility] (Manuel Avery) Disposition <Sydni Vasques - Last Filed: 06/29/18 19:01> Is patient prescribed a controlled substance at d/c from ED?: No - Out of Hospital Transfer - Req. Specs Out of Hospital Transfer - Requested Specifics: Other Emergency Center ([facility]) <Manuel Avery - Last Filed: 06/29/18 22:25> Clinical Impression: Pneumonia, Change in mental status, Cerebrovascular accident Disposition: OTHER INSTITUTION NOT DEFINED Condition: Fair Referrals: Manuel Oquendo DO [Primary Care Provider] - 1-2 days
[2018-06-29 19:55] LABS: Anisocytosis Slight; Basophils % (A) 0 %; Eosinophils # (A) 0.1 k/uL (0-0.7); Eosinophils % (A) 1 %; HCT 29.7 % (34.0-46.0); HGB 9.1 gm/dL (11.4-16.0); Hypochromasia Moderate; Lymphocytes % (A) 10 %; MCH 26.4 pg (25.0-35.0); MCHC 30.7 g/dL (31.0-37.0); Mean Platelet Volume 7.2; Monocytes # (A) 0.3 k/uL (0-1.0); Monocytes % (A) 3 %; Neutrophils # (A) 8.8 k/uL (1.3-7.7); Neutrophils % (A) 85 %; Platelet Count 337 k/uL (150-450); RBC 3.45 m/uL (3.80-5.40); RDW 16.6 % (11.5-15.5); WBC 10.4 k/uL (3.8-10.6)
--- NOTE | 2018-06-29 20:07 | CT ---
EXAMINATION: CT brain wo con for TPA DATE AND TIME: 06/29/2018 7:42 PM CLINICAL INDICATION: PHH; Neuro Deficits TECHNIQUE: Standard departmental protocol.; 1048.4; COMPARISON: 11/29/2017 FINDINGS: The calvarium is intact. There is no intracranial hemorrhage. There is no intracranial mass or mass effect. No definite new intra-axial or extra-axial attenuation defect. The paranasal sinuses, middle ear cavities, and mastoid sinus air cells are clear. The orbits are unremarkable. IMPRESSION: NO ACUTE PROCESS.
[2018-06-29 20:17] LABS: Albumin 3.5 g/dL (3.5-5.0); Calcium 8.7 mg/dL (8.4-10.2); Creatine Kinase 52 U/L (30-135); Potassium 4.7 mmol/L (3.5-5.1); Total Bilirubin 0.3 mg/dL (0.2-1.3); Total Protein 6.2 g/dL (6.3-8.2)
[2018-06-29 20:29] LABS: Creatine Kinase MB 0.8 ng/mL (0.0-2.4); Troponin I <0.012 ng/mL (0.000-0.034)
--- NOTE | 2018-06-29 20:32 | XR ---
EXAMINATION: XR chest 2V DATE AND TIME: 06/29/2018 7:41 PM CLINICAL INDICATION: PHH; altered mental status TECHNIQUE: Departmental protocol COMPARISON: 11/28/2017 FINDINGS: There is ill-defined consolidated opacity throughout the lingula. The lungs are otherwise clear. The pleural spaces are negative. The cardiac silhouette is moderately enlarged, unchanged. The skeletal structures and soft tissues are negative for acute findings. IMPRESSION: LINGULAR BRONCHOPNEUMONIA. Would suggest 6 week follow-up PA and lateral chest radiographs to prove resolution of the abnormalit ies.
[2018-06-29 20:39] LABS: INR 0.9 (<1.2); Partial Thromboplastin Time 25.9 sec (22.0-30.0); Prothrombin Time 10.1 sec (9.0-12.0)
--- NOTE | 2018-06-29 22:01 | CT ---
EXAMINATION TYPE: CT angio head neck with contrast and with 3-D reconstruction renderings. DATE OF EXAM: 06/29/2018 HISTORY: CVA COMPARISON: CT without contrast 06/29/2018 at 7:[address] DLP: 505.6 mGycm. Automated Exposure Control for Dose Reduction was Utilized. TECHNIQUE: CTA scan of the neck is performed with IV Contrast, patient injected with 65 mL of Isovue 370, axial images are obtained, coronal and sagittal reformatted images are reviewed. Three-D recons tructed images are created on an independent workstation and reviewed. CTA NECK FINDINGS: The right and left carotid arterial systems are widely patent without significant stenosis, dissectio n, or aneurysm. The right and left vertebral arterial systems are widely patent, without significant stenosis, dissection, or aneurysm. Other: The venous structures are unremarkable. No incidental mass, attenuation defect, adenopathy, or inflammatory change. CTA HEAD FINDINGS: The anterior and posterior circulation are widely patent without significant stenosis, dissection, or aneurysm. Dural venous sinuses are unremarkable. No intra-axial or extra-axial defects. Calvarium an d orbits are unremarkable. IMPRESSION: No significant abnormality is seen.
[2018-06-29] MEDS ORDERED: LEVOFLOXACIN 750MG-D5W PMX 750 MG in DEXTROSE/WATER 1 150ML.BAG IVPB STA (22:23)
[2018-06-29] MEDS ORDERED: ASPIRIN 81 MG PO STA (22:23)
[2018-06-29] MEDS ORDERED: DONEPEZIL 10 MG TAB PO STA (23:09)
[2018-06-29] MEDS ORDERED: HYDROcodone/APAP 10-325MG 1 EACH TAB PO STA (23:10)
[2018-06-29] MEDS ORDERED: PRAVASTATIN SODIUM 40 MG TAB PO STA (23:10)
[2018-06-29 23:28] LABS: Glucose,Whole Blood 106 mg/dL (75-99)
[2018-06-29 23:37] VITALS: BP 130/79; PULSE 80; TEMP 98
== END 2018-06-29 23:30 | disposition short-term general hospital (02) ==
LOC: EC 17:31
DX: I63.9 Cerebral infarction, unspecified (principal); J18.0 Bronchopneumonia, unspecified organism; R53.1 Weakness; J44.0 Chronic obstructive pulmonary disease with (acute) lower respiratory infection; E78.5 Hyperlipidemia, unspecified; I10 Essential (primary) hypertension; E11.42 Type 2 diabetes mellitus with diabetic polyneuropathy; G20 Parkinson's disease; E03.9 Hypothyroidism, unspecified; F01.50 Vascular dementia, unspecified severity, without behavioral disturbance, psychotic disturbance, mood disturbance, and anxiety; M10.9 Gout, unspecified; M19.90 Unspecified osteoarthritis, unspecified site; Z88.5 Allergy status to narcotic agent; Z79.1 Long term (current) use of non-steroidal anti-inflammatories (NSAID); Z79.82 Long term (current) use of aspirin; Z79.84 Long term (current) use of oral hypoglycemic drugs; Z79.899 Other long term (current) drug therapy; Z99.81 Dependence on supplemental oxygen
CPT/HCPCS: 99285; 96365; 96361 ×3; 36415; 93005; 80053; 82550; 82553; 84484; 85025; 85610; 85730; 71046; 70496; 70450; 70498; J1956; Q9967

== ENCOUNTER 2018-09-22 15:49 | Emergency (ER) | payer MEDICARE ==
[2018-09-22 15:56] VITALS: BP 109/60; TEMP 97.4
--- NOTE | 2018-09-22 16:07 | ED ---
SOB HPI - General Chief Complaint: Shortness of Breath Stated Complaint: DEE Time Seen by Provider: 09/22/18 16:00 Source: patient, EMS, RN notes reviewed Mode of arrival: EMS Limitations: no limitations - History of Present Illness Initial Comments: This is an 83-year-old female who is brought in by EMS with complaints of shortness of breath. The patient family members state that they do not want to be at this facility want to be transferred to [facility]. They have agreed to sign out AGAINST MEDICAL ADVICE and transport themselves here. Patient herself is awake alert oriented 3 there refusing any other intervention or examination at this time. They state that their insurance will not cover a visit here. A granddaughter as well as other family members are present and do agree with this. She will sign AGAINST MEDICAL ADVICE MD Complaint: shortness of breath - Related Data Home Medications Medication Instructions Recorded Confirmed Allopurinol [Zyloprim] 300 mg PO DAILY 11/27/17 06/29/18 Aspirin EC [Ecotrin Low Dose] 81 mg PO DAILY 11/27/17 06/29/18 Carbidopa-Levodopa ER 50-200Mg 1 tab PO BID 11/27/17 06/29/18 [Sinemet CR 50-200 mg] HYDROcodone/APAP 10-325MG [[place] 1 tab PO QID PRN 11/27/17 06/29/18 10-325] Levothyroxine Sodium [Synthroid] 112 mcg PO DAILY 11/27/17 06/29/18 Lisinopril [Zestril] 5 mg PO DAILY 11/27/17 06/29/18 Meclizine [Antivert] 25 mg PO Q8H PRN 11/27/17 06/29/18 Meloxicam [Mobic] 7.5 mg PO DAILY 11/27/17 06/29/18 Multivitamins, Thera [Multivitamin 1 tab PO DAILY 11/27/17 06/29/18 (formulary)] Pravastatin Sodium [Pravachol] 40 mg PO DAILY 11/27/17 06/29/18 Ubidecarenone [Co Q-10] 100 mg PO DAILY 11/27/17 06/29/18 metFORMIN HCL [Glucophage] 500 mg PO DAILY 11/27/17 06/29/18 Donepezil [Aricept] 10 mg PO HS 06/29/18 06/29/18 Ipratropium-Albuterol Nebulize 3 ml INHALATION RT-QID PRN 06/29/18 06/29/18 [Duoneb 0.5 mg-3 mg/3 ml Soln] Umeclidinium Brm/Vilanterol Tr 1 puff INHALATION RT-DAILY 06/29/18 06/29/18 [Anoro Ellipta 62.5-25 Mcg INH] Previous Rx's Medication Instructions Recorded Pantoprazole [Protonix] 40 mg PO AC-BRKFST #10 tablet. 11/30/17 Allergies Allergy/AdvReac Type Severity Reaction Status Date / Time codeine Allergy Rash/Hives Verified 09/22/18 15:56 Review of Systems ROS Statement: Those systems with pertinent positive or pertinent negative responses have been documented in the HPI. ROS Other: All systems not noted in ROS Statement are negative. 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 History of Any Multi-Drug Resistant Organisms: None Reported Past Surgical History: Cholecystectomy, Hysterectomy, Tonsillectomy Additional Past Surgical History / Comment(s): Bilateral cataract removals and lenses were lazered Past Anesthesia/Blood Transfusion Reactions: No Reported Reaction Past Psychological History: No Psychological Hx Reported Smoking Status: Never smoker Past Alcohol Use History: None Reported Past Drug Use History: None Reported - Past Family History Father Family Medical History: Myocardial Infarction (CO) Additional Family Medical History / Comment(s): Father of a CO at the age of 64yrs. Mother Family Medical History: Congestive Heart Failure (CHF) Additional Family Medical History / Comment(s): Mother of CHF at the age of 72 yrs. General Exam - General Exam Comments Initial Comments: This is a well-developed sec appearing female who is awake alert oriented 3 she does appear somewhat pale other than observational assessments no other exam is done as the patient is refusing. Limitations: no limitations General appearance: alert Course Vital Signs 09/22/18 15:50 Temperature 97.4 F L Pulse Rate 71 Respiratory 20 Rate Blood Pressure 109/60 O2 Sat by Pulse 92 L Oximetry Disposition Clinical Impression: Acute exacerbation of chronic obstructive airways disease Disposition: Left Against Medical Advice Condition: Fair Referrals: None,Stated [Primary Care Provider] - 1-2 days
[2018-09-22 16:17] VITALS: RESP 22
[2018-09-22 16:19] VITALS: PULSE 70
== END 2018-09-22 16:17 | disposition left against medical advice (07) ==
LOC: EC 15:49 → SUPCPDRO 15:49 → EC 16:17
DX: J44.1 Chronic obstructive pulmonary disease with (acute) exacerbation (principal); E11.42 Type 2 diabetes mellitus with diabetic polyneuropathy; E78.5 Hyperlipidemia, unspecified; I10 Essential (primary) hypertension; G20 Parkinson's disease; F02.80 Dementia in other diseases classified elsewhere, unspecified severity, without behavioral disturbance, psychotic disturbance, mood disturbance, and anxiety; E03.9 Hypothyroidism, unspecified; M10.9 Gout, unspecified; M19.90 Unspecified osteoarthritis, unspecified site; Z88.5 Allergy status to narcotic agent; Z79.1 Long term (current) use of non-steroidal anti-inflammatories (NSAID); Z79.82 Long term (current) use of aspirin; Z79.84 Long term (current) use of oral hypoglycemic drugs; Z79.890 Hormone replacement therapy; Z79.899 Other long term (current) drug therapy; Z99.81 Dependence on supplemental oxygen; Z53.20 Procedure and treatment not carried out because of patient's decision for unspecified reasons
CPT/HCPCS: 99285

== ENCOUNTER → 2022-09-19 | Outpatient (CLI) | payer MEDICARE, OTHER ==
--- NOTE | 2022-09-19 13:07 | MM ---
Reason for Exam: Clinical finding. Last mammogram was performed 12 year(s) and 7 month(s) ago. Indicated Problems: Lump or thickening of the left side for 12 Year(s). Other indicated problem of the right side for 1 Month(s) : abcess. Patient History: Menarche at age 10. First Full-Term at age 18. Hysterectomy at age 40. Postmenopausal. Patient has history of breast feeding. Prior Study Comparison: 02/28/2010 Bilateral Screening Mammogram, [facility]. 03/07/2010 Left Diagnostic Mammogram, [facility]. Tissue Density: There are scattered fibroglandular densities. Findings: Analyzed By CAD. There is a suspicious mass in the right breast 10 cm of the nipple in the medial inferior aspect measuring 2.6 x 2.8 cm. There is skin thickening of the skin in the right breast measuring up to 8 mm. Left breast skin thickening measuring up to 12 mm with areas of abnormal density within the left upper outer quadrant approximately 7 cm from the nipple. No discrete mass visualized on mammography in the left breast. Overall Assessment: Incomplete: need additional imaging evaluation, BI-RAD 0 Management: Diagnostic Breast Ultrasound of both breasts. A clinical breast exam by your physician is recommended on an annual basis and results should be correlated with mammographic findings. This exam should not preclude additional follow-up of suspicious palpable abnormalities. Results were given to the patient verbally at the time of exam. Electronically signed and approved by: Paolo Portillo DO
--- NOTE | 2022-09-22 12:05 | USB ---
Reason for Exam: Clinical finding. Patient History: Menarche at age 10. First Full-Term at age 18. Hysterectomy at age 40. Postmenopausal. Patient has history of breast feeding. Prior Study Comparison: 03/30/2003 Left Special View Mammogram, [facility]. 02/28/2010 Bilateral Screening Mammogram, [facility]. 03/07/2010 Left Diagnostic Mammogram, [facility]. Findings: Imaged: Ultrasound imaging of: Left: All 4 quadrants, the retroareolar region and axilla. Right breast: 12-3 o'clock with retroareolar and axilla of the right. * Right breast 1:00 7 cm from nipple is anechoic irregular shaped mass with internal color Doppler flow measuring 2.3 x 3.3 x 1.8 cm. * Right breast skin thickening measuring up to 6 mm. * Left breast skin thickening up to 10 mm. * Irregular hypoechoic shaped mass measuring 3.3 x 1.5 x 2.9 cm. There is internal color Doppler flow. No lymph nodes definitively visualized however exam is limited. Overall Assessment: Highly suggestive of malignancy, BI-RAD 5 Management: Ultrasound-Guided Core Biopsy of both breasts. A clinical breast exam by your physician is recommended on an annual basis and results should be correlated with mammographic findings. This exam should not preclude additional follow-up of suspicious palpable abnormalities. Results were given to the patient verbally at the time of exam. Electronically signed and approved by: Paolo Portillo DO
== END | disposition home or self-care (01) ==
LOC: RADMAMWWP 10:58
PROVIDERS: ATTEND Internal Medicine
DX: R92.8 Other abnormal and inconclusive findings on diagnostic imaging of breast (principal); N61.1 Abscess of the breast and nipple; N63.20 Unspecified lump in the left breast, unspecified quadrant; Z78.0 Asymptomatic menopausal state
CPT/HCPCS: 77066; 76642; G0279; 77062